=== PATIENT | female | born 1950 | race Caucasian/White ===

== ENCOUNTER 2016-11-11 11:51 | Emergency (ER) | payer MEDICARE ==
[2016-11-11 12:00] VITALS: PULSE 72
--- NOTE | 2016-11-11 12:20 | ED ---
Female Urogenital HPI - General Chief complaint: Urogenital Stated complaint: UTI Time Seen by Provider: 11/11/16 12:01 Source: patient Mode of arrival: ambulatory Limitations: no limitations - History of Present Illness Initial comments: This is a 66-year-old female who presents emergency department for discolored urine and stool. She states that she also has been having urinary frequency and burning with lower abdominal pain and lower back pain area and she states that this is been going on for a few weeks. She was started on your abdominal by her nurse practitioner. She took one last night and one this morning and that is when she noticed that her urine was a different color. She states that almost looked brown. She denies any fevers or chills. No nausea or vomiting. She does admit to some diarrhea that started this morning. No other complaints. - Related Data Home Medications Medication Instructions Recorded Confirmed ALPRAZolam [Xanax] 0.5 mg PO DAILY 02/12/15 11/11/16 Fenofibrate,Micronized 200 mg PO DAILY 02/12/15 11/11/16 [Fenofibrate] Lisinopril [Prinivil] 20 mg PO BID 02/12/15 11/11/16 Montelukast [Singulair] 10 mg PO DAILY 02/12/15 11/11/16 PARoxetine HCL 40 mg PO DAILY 02/12/15 11/11/16 Pregabalin [Lyrica] 300 mg PO BID 02/12/15 11/11/16 SUMAtriptan SUCCINATE [Imitrex] 100 mg PO TID PRN 02/12/15 11/11/16 Saxagliptin HCl/Metformin HCl 1 tab PO AC-BID 02/12/15 11/11/16 [Kombiglyze Xr 2.5-1,000 mg Tab] Cyanocobalamin [Vitamin B-12 1,000 mcg SQ QMONTH 02/04/16 11/11/16 Injection] Dexlansoprazole [Dexilant] 60 mg PO DAILY 02/04/16 11/11/16 Fluticasone Nasal Hanna [Flonase 1 spray EA NOSTRIL DAILY 02/04/16 11/11/16 Nasal Hanna] Fluticasone/Salmeterol [Advair 1 inhalation PO RT-BID 02/04/16 11/11/16 100-50 Diskus] Levocetirizine Dihydrochloride 5 mg PO DAILY 02/04/16 11/11/16 Magnesium 1,000 mg PO HS 02/04/16 11/11/16 Pravastatin Sodium [Pravachol] 80 mg PO HS 02/04/16 11/11/16 Ranitidine HCl [Zantac] 150 mg PO HS 02/04/16 11/11/16 Previous Rx's Medication Instructions Recorded HYDROcodone/APAP 10-325MG [[facility] [place] 1 tab PO Q6H PRN #60 tab 02/04/16 10-325] Ciprofloxacin HCl [Cipro] 500 mg PO Q12HR #14 tablet 11/11/16 Fluconazole [Diflucan] 200 mg PO ONCE #1 tab 11/11/16 Phenazopyridine HCl [Pyridium] 100 mg PO TID #6 tab 11/11/16 Allergies Allergy/AdvReac Type Severity Reaction Status Date / Time codeine Allergy Nausea Verified 11/11/16 12:48 Sulfa (Sulfonamide Allergy Nausea Verified 11/11/16 12:48 Antibiotics) Review of Systems ROS Statement: Those systems with pertinent positive or pertinent negative responses have been documented in the HPI. ROS Other: All systems not noted in ROS Statement are negative. Past Medical History Past Medical History: Heart Failure, GERD/Reflux, Hyperlipidemia, Hypertension, Thyroid Disorder Additional Past Medical History / Comment(s): migraine, barretts esophagus History of Any Multi-Drug Resistant Organisms: None Reported Past Surgical History: Hernia Repair, Joint Replacement, Tonsillectomy Additional Past Surgical History / Comment(s): Partial hysterectomy Past Anesthesia/Blood Transfusion Reactions: No Reported Reaction Past Psychological History: Depression Smoking Status: Never smoker Past Alcohol Use History: None Reported Past Drug Use History: None Reported - Past Family History Mother Family Medical History: CVA/TIA, Myocardial Infarction ([place]) Father Family Medical History: Cancer, Prostate Disorder Additional Family Medical History / Comment(s): prostate ca and lymphoma, bone ca General Exam - General Exam Comments Initial Comments: Constitutional: Awake alert Appears comfortable, very anxious appearing Head: Normocephalic atraumatic Eyes: no conjunctival injection No scleral icterus EOMI Neck: No JVD Supple Heart: Regular rate rhythm normal S1-S2 no murmurs Lungs: Clear to auscultation bilaterally No wheezing No rales Abdomen: Soft nondistended no tenderness to palpation in the suprapubic region, no CVA tenderness Extremities: Non edematous DP pulses intact Radial pulses intact Neuro: A&Ox3 No focal neurologic deficits Psych: Appropriate mood and affect Limitations: no limitations Course Vital Signs 11/11/16 11/11/16 11:58 14:46 Temperature 98.6 F 97.6 F Pulse Rate 72 72 Respiratory 20 18 Rate Blood Pressure 195/93 192/85 O2 Sat by Pulse 96 97 Oximetry Medical Decision Making - Medical Decision Making Patient is currently comfortable. Blood work reviewed and unremarkable. UA does show urinary tract infection. I feel that the color change in her urine is from the [place]rib[place]. Told to stop this. We'll start her on Cipro. Given Diflucan emergency department as well. Given Pyridium for home. Can follow-up with her primary doctor. - Lab Data Result diagrams: 11/11/16 14:10 11/11/16 14:10 Lab Results 11/11/16 11/11/16 11/11/16 Range/Units 12:03 14:10 14:10 WBC 5.1 (3.8-10.6) k/uL RBC 4.24 (3.80-5.40) m/uL Hgb 11.8 (11.4-16.0) gm/dL Hct 36.3 (34.0-46.0) % MCV 85.7 (80.0-100.0) fL MCH 27.9 (25.0-35.0) pg MCHC 32.5 (31.0-37.0) g/dL RDW 14.6 (11.5-15.5) % Plt Count 126 L (150-450) k/uL Neutrophils % 71 % Lymphocytes % 21 % Monocytes % 5 % Eosinophils % 2 % Basophils % 0 % Neutrophils # 3.6 (1.3-7.7) k/uL Lymphocytes # 1.1 (1.0-4.8) k/uL Monocytes # 0.3 (0-1.0) k/uL Eosinophils # 0.1 (0-0.7) k/uL Basophils # 0.0 (0-0.2) k/uL Sodium 138 (137-145) mmol/L Potassium 4.0 (3.5-5.1) mmol/L Chloride 101 (98-107) mmol/L Carbon Dioxide 24 (22-30) mmol/L Anion Gap 13 mmol/L BUN 12 (7-17) mg/dL Creatinine 0.84 (0.52-1.04) mg/dL Est GFR (MDRD) Af Amer >60 (>60 ml/min/1.73 sqM) Est GFR (MDRD) Non-Af >60 (>60 ml/min/1.73 sqM) Glucose 419 H (74-99) mg/dL Calcium 9.4 (8.4-10.2) mg/dL Urine Color Dark Green Urine Appearance Turbid H (Clear) Urine pH 5.0 (5.0-8.0) Ur Specific Froid 1.022 (1.001-1.035) Urine Protein 1+ H (Negative) Urine Glucose (UA) Negative (Negative) Urine Ketones Negative (Negative) Urine Blood Small H (Negative) Urine Nitrite Positive H (Negative) Urine Bilirubin 1+ H (Negative) Urine Urobilinogen 2.0 (<2.0) mg/dL Ur Leukocyte Esterase Large H (Negative) Urine RBC 120 H (0-5) /hpf Urine WBC >182 H (0-5) /hpf Urine WBC Clumps Many H (None) /hpf Ur Squamous Epith Cells 8 H (0-4) /hpf Urine Bacteria Moderate H (None) /hpf Urine Mucus Rare H (None) /hpf Disposition Clinical Impression: UTI (urinary tract infection), Maay vaginitis Disposition: HOME SELF-CARE Condition: Stable Instructions: Urinary Tract Infection in Women (ED), Vulvovaginal Candidiasis ( ED) Prescriptions: Ciprofloxacin HCl [Cipro] 500 mg PO Q12HR #14 tablet Fluconazole [Diflucan] 200 mg PO ONCE #1 tab Phenazopyridine HCl [Pyridium] 100 mg PO TID #6 tab Referrals: None,Stated [Primary Care Provider] - 1-2 days
[2016-11-11] MEDS ORDERED: FLUCONAZOLE 100 MG TAB PO ONE (12:24)
[2016-11-11 12:37] LABS: Appearance,Urine Turbid (Clear); Bacteria,Urine Moderate /hpf; Bilirubin,Urine 1+ (Negative); Glucose,Urine (UA) Negative (Negative); Ketones,Urine Negative (Negative); Leukocyte Esterase,Urine Large (Negative); Mucus,Urine Rare /hpf; Nitrite,Urine Positive (Negative); Particle Count 11798; Protein,Urine 1+ (Negative); RBC,Urine 120 /hpf (0-5); Specific Gravity,Urine 1.022 (1.001-1.035); Squamous Epithelial Cell,Urine 8 /hpf (0-4); UA Billing (MACRO vs. MICRO) MICRO; WBC,Urine >182 /hpf (0-5)
[2016-11-11 14:31] LABS: Basophils % (A) 0 %; CH 27.8; CHCM 32.7; Eosinophils # (A) 0.1 k/uL (0-0.7); Eosinophils % (A) 2 %; HCT 36.3 % (34.0-46.0); HDW 2.71; HGB 11.8 gm/dL (11.4-16.0); Luc # (Auto) 0.06; Luc % (Auto) 1; Lymphocytes # (A) 1.1 k/uL (1.0-4.8); Lymphocytes % (A) 21 %; MCH 27.9 pg (25.0-35.0); MCHC 32.5 g/dL (31.0-37.0); MCV 85.7 fL (80.0-100.0); Mean Platelet Volume 10.3; Monocytes # (A) 0.3 k/uL (0-1.0); Monocytes % (A) 5 %; Neutrophils # (A) 3.6 k/uL (1.3-7.7); Neutrophils % (A) 71 %; RBC 4.24 m/uL (3.80-5.40); RDW 14.6 % (11.5-15.5); WBC 5.1 k/uL (3.8-10.6)
[2016-11-11 14:34] LABS: Anion Gap 13 mmol/L; Blood Urea Nitrogen 12 mg/dL (7-17); Calcium 9.4 mg/dL (8.4-10.2); Carbon Dioxide 24 mmol/L (22-30); Chloride 101 mmol/L (98-107); Glucose 419 mg/dL (74-99); Non-African American GFR(MDRD) >60 (>60 ml/min/1.73 sqM); Sodium 138 mmol/L (137-145)
[2016-11-11 14:47] VITALS: BP 192/85; RESP 18; TEMP 97.6
== END 2016-11-11 14:46 | disposition home or self-care (01) ==
LOC: EC 11:51
DX: N39.0 Urinary tract infection, site not specified (principal); B37.3 Candidiasis of vulva and vagina; I50.9 Heart failure, unspecified; K21.9 Gastro-esophageal reflux disease without esophagitis; E78.5 Hyperlipidemia, unspecified; I10 Essential (primary) hypertension; F32.9 Major depressive disorder, single episode, unspecified; Z79.51 Long term (current) use of inhaled steroids; Z79.899 Other long term (current) drug therapy; Z88.2 Allergy status to sulfonamides; Z88.5 Allergy status to narcotic agent
CPT/HCPCS: 36415; 80048; 81001; 85025; 87077; 87086; 87186; 99283

== ENCOUNTER → 2018-07-19 | Outpatient (CLI) | payer MEDICARE ==
--- NOTE | 2018-07-19 11:58 | XR ---
EXAMINATION TYPE: XR foot complete LT DATE OF EXAM: 07/19/2018 COMPARISON: NONE HISTORY: Palpable abnormality TECHNIQUE: Three views are submitted. FINDINGS: The osseous structures are intact. There is no acute fracture or dislocation. Joint spaces are p reserved. There is spurring along the Achilles insertion of the calcaneus. Plantar calcaneal spur not ed. There is soft tissue calcification the region of the posterior ankle soft tissues. Arthropathy of the tarsal metatarsal junction and first MTP noted. IMPRESSION: 1. No acute fracture or dislocation. If symptoms persist, follow-up exam in 7 to 10 days could be ob tained. 2. Hypertrophic spurring.
== END | disposition home or self-care (01) ==
LOC: RADXRMAIN 11:32
PROVIDERS: ATTEND Podiatrist Foot Surgery
DX: M77.32 Calcaneal spur, left foot (principal); M77.42 Metatarsalgia, left foot

== ENCOUNTER 2018-08-16 14:21 | Inpatient (IN) | payer MEDICARE ==
[2018-08-16] MEDS ORDERED: ALPRAZolam 0.5 MG TAB PO STA (15:09)
[2018-08-16 15:47] LABS: Appearance,Urine Clear (Clear); Bilirubin,Urine Negative (Negative); Blood,Urine Negative (Negative); Color,Urine Yellow; Glucose,Urine (UA) 4+ (Negative); Ketones,Urine Negative (Negative); Leukocyte Esterase,Urine Trace (Negative); Mucus,Urine Rare /hpf; Nitrite,Urine Negative (Negative); PH, Urine 5.5 (5.0-8.0); Protein,Urine 1+ (Negative); RBC,Urine 1 /hpf (0-5); Specific Gravity,Urine 1.014 (1.001-1.035); Squamous Epithelial Cell,Urine 1 /hpf (0-4); Urobilinogen,Urine <2.0 mg/dL (<2.0)
[2018-08-16 16:19] LABS: Anisocytosis Slight; Basophils % (A) 0 %; Eosinophils # (A) 0.1 k/uL (0-0.7); Eosinophils % (A) 1 %; HCT 41.7 % (34.0-46.0); HGB 13.1 gm/dL (11.4-16.0); Hypochromasia Slight; Lymphocytes # (A) 1.6 k/uL (1.0-4.8); Lymphocytes % (A) 20 %; MCH 26.8 pg (25.0-35.0); MCHC 31.4 g/dL (31.0-37.0); MCV 85.4 fL (80.0-100.0); Mean Platelet Volume 7.9; Monocytes # (A) 0.3 k/uL (0-1.0); Monocytes % (A) 4 %; Neutrophils % (A) 74 %; Platelet Count 249 k/uL (150-450); RBC 4.88 m/uL (3.80-5.40); RDW 17.1 % (11.5-15.5); WBC 8.2 k/uL (3.8-10.6)
[2018-08-16 16:29] LABS: ALT 29 U/L (9-52); AST 34 U/L (14-36); Alkaline Phosphatase <20 U/L (38-126); Anion Gap 11 mmol/L; Blood Urea Nitrogen 38 mg/dL (7-17); Calcium 9.7 mg/dL (8.4-10.2); Carbon Dioxide 23 mmol/L (22-30); Chloride 102 mmol/L (98-107); Potassium 4.5 mmol/L (3.5-5.1); Sodium 136 mmol/L (137-145); Total Bilirubin 0.7 mg/dL (0.2-1.3); Total Protein 6.7 g/dL (6.3-8.2)
--- NOTE | 2018-08-16 16:32 | XR ---
EXAMINATION: XR chest 2V DATE AND TIME: 08/16/2018 4:26 PM CLINICAL INDICATION: Cough and congestion, pain TECHNIQUE: Departmental protocol COMPARISON: 02/03/2016 FINDINGS: The lungs are clear. The pleural spaces are negative. The cardiac silhouette is not enlarged. The remainder of the mediastinal silhouette is unremarkable. The skeletal structures and soft tissues are negative for acute findings. IMPRESSION: NO ACUTE PROCESS.
[2018-08-16 16:38] LABS: INR 1.2 (<1.2); Prothrombin Time 12.4 sec (9.0-12.0)
[2018-08-16 16:41] LABS: Partial Thromboplastin Time 17.9 sec (22.0-30.0)
[2018-08-16 16:50] LABS: Creatine Kinase MB 2.6 ng/mL (0.0-2.4)
[2018-08-16 16:58] LABS: Glucose 588 mg/dL (74-99)
[2018-08-16 16:59] LABS: Troponin I 0.049 ng/mL (0.000-0.034)
[2018-08-16] MEDS ORDERED: ASPIRIN 81 MG PO STA (17:04)
--- NOTE | 2018-08-16 17:13 | ED ---
URI HPI <Yakov Lebron J - Last Filed: 08/16/18 18:12> - General Source: patient Mode of arrival: ambulatory Limitations: no limitations <Maddie Ho - Last Filed: 08/16/18 22:09> - General Chief Complaint: Upper Respiratory Infection Stated Complaint: Poss flu,cough Time Seen by Provider: 08/16/18 14:51 - History of Present Illness Initial Comments: 68-year-old female with past medical history of hypertension, hyperlipidemia, diabetes and heart failure presents today for chief complaint of cough, congestion and chest pressure. Patient states that for the past week she has had cough congestion and chest pressure. She states she feels as though she has a chest cold. She states she's also had fever and chills. She does have sick contacts in the household. Patient denies any upper extremity paresthesias , which are pain, back pain, nausea, vomiting, diaphoresis. She states that she was seen by Dr. Gordon, lst Thursday and prescribed antibiotics, a steroid pack and a nebulizer. She states this is not alleviate symptoms. Patient states that in addition she recently has moved, and is new to [place], she states that she was transferred to Dr. Colunga for pain mgmt as he was previously seen in [place] for chronic pain of the neck. She states he put her on her fentanyl and [place]. However he is not represcribed her trazodone or other antianxiety meds. Patient does admit to increased anxiety. Patient denies any dyspnea, dyspnea on exertion, lower extremity edema, calf pain, hemoptysis, recent travel, history of cancer. Remaining ROS is negative, patient denies any recent abdominal pain, nausea or vomiting, numbness or tingling, dysuria or hematuria, constipation or diarrhea, headaches or visual changes, or any other complaints. Upon arrival pt HR elevated, remaining within acceptable limits. (Maddie Ho) - Related Data Home Medications Medication Instructions Recorded Confirmed Fenofibrate,Micronized 200 mg PO DAILY 02/12/15 08/16/18 [Fenofibrate] Lisinopril [Prinivil] 20 mg PO BID 02/12/15 08/16/18 PARoxetine HCL 40 mg PO DAILY 02/12/15 08/16/18 SUMAtriptan SUCCINATE [Imitrex] 100 mg PO TID PRN 02/12/15 08/16/18 Cyanocobalamin [Vitamin B-12 1,000 mcg SQ QMONTH 02/04/16 08/16/18 Injection] Dexlansoprazole [Dexilant] 60 mg PO DAILY 02/04/16 08/16/18 Fluticasone Nasal Alcova [Flonase 1 spray EA NOSTRIL DAILY 02/04/16 08/16/18 Nasal Alcova] Fluticasone/Salmeterol [Advair 1 inhalation PO RT-BID 02/04/16 08/16/18 100-50 Diskus] Atorvastatin [Lipitor] 80 mg PO DAILY 08/16/18 08/16/18 Ciprofloxacin HCl [Cipro] 500 mg PO BID 08/16/18 08/16/18 HYDROcodone/APAP 10-325MG [[place] 1 tab PO DAILY PRN 08/16/18 08/16/18 10-325] INSULIN LISPRO (humaLOG) [humaLOG] 15 units SQ BID 08/16/18 08/16/18 Insulin Glargine,Hum.rec.anlog 25 unit SQ HS 08/16/18 08/16/18 [Lantus Solostar] Orphenadrine Citrate [Orphenadrine 100 mg PO BID 08/16/18 08/16/18 Citrate ER] Pregabalin [Lyrica] 100 mg PO BID 08/16/18 08/16/18 Ranitidine HCl 300 mg PO DAILY 08/16/18 08/16/18 busPIRone HCL 15 mg PO BID 08/16/18 08/16/18 fentaNYL 50MCG/HR PATCH [Duragesic 50 mcg TRANSDERM Q72H 08/16/18 08/16/18 50MCG/HR] metFORMIN HCL ER [Glucophage Xr] 1,000 mg PO BID 08/16/18 08/16/18 Allergies Allergy/AdvReac Type Severity Reaction Status Date / Time codeine Allergy Nausea Verified 08/16/18 17:02 Sulfa (Sulfonamide Allergy Nausea Verified 08/16/18 17:02 Antibiotics) Review of Systems ROS Other: All systems not noted in ROS Statement are negative. <Yakov Lebron - Last Filed: 08/16/18 18:12> ROS Other: All systems not noted in ROS Statement are negative. <Maddie Ho - Last Filed: 08/16/18 22:09> ROS Statement: Those systems with pertinent positive or pertinent negative responses have been documented in the HPI. Past Medical History Past Medical History: Heart Failure, GERD/Reflux, Hyperlipidemia, Hypertension, Thyroid Disorder Additional Past Medical History / Comment(s): migraine, barretts esophagus History of Any Multi-Drug Resistant Organisms: None Reported Past Surgical History: Hernia Repair, Joint Replacement, Tonsillectomy Additional Past Surgical History / Comment(s): Partial hysterectomy Past Anesthesia/Blood Transfusion Reactions: No Reported Reaction Past Psychological History: Anxiety, Depression, Panic Disorder Smoking Status: Never smoker Past Alcohol Use History: None Reported Past Drug Use History: None Reported - Past Family History Mother Family Medical History: CVA/TIA, Myocardial Infarction ([place]) Father Family Medical History: Cancer, Prostate Disorder Additional Family Medical History / Comment(s): prostate ca and lymphoma, bone ca <Maddie Ho - Last Filed: 08/16/18 22:09> General Exam <Yakov Lebron - Last Filed: 08/16/18 18:12> Limitations: no limitations <Maddie Ho - Last Filed: 08/16/18 22:09> - General Exam Comments Initial Comments: General: The patient is awake and alert, in no distress. Pt wearing mask Eye: +3 mm pupils are equal, round and reactive to light, extra-ocular movements are intact. No nystagmus. There is normal conjunctiva bilaterally. No signs of icterus. Ears, nose, mouth and throat: There are moist mucous membranes and no oral lesions. Nasal congestion. Mildly erythematous oropharynx, no tonsillar enlargement or exudates or lesions. No difficulty swallowing. Neck: The neck is supple, there is no tenderness or JVD. No anterior cervical adenopathy. Cardiovascular: There is a regular rate and rhythm. No murmur, rub or gallop is appreciated. Respiratory: Lungs are clear to auscultation, respirations are non-labored, breath sounds are equal. No wheezes, stridor, rales. Mild rhonchi. Cough on exam. Gastrointestinal: Soft, non-distended, non-tender abdomen without masses or organomegaly noted. There is no rebound or guarding present. No CVA tenderness. Bowel sounds are unremarkable. Musculoskeletal: Normal ROM, no tenderness. Strength 5/5. Sensation intact. Radial and DP pulses equal bilaterally 2+. Neurological: A&O x 3. CN II-XII intact, There are no obvious motor or sensory deficits. Coordination appears grossly intact. Speech is normal. Skin: Skin is warm and dry and no rashes or lesions are noted. Negative Homans b/l. No lower extremity edema. Psychiatric: Cooperative, appropriate mood & affect, normal judgment. (Maddie Ho) Vital Signs 08/16/18 08/16/18 08/16/18 14:23 15:43 15:47 Temperature 98.8 F 100.2 F H Pulse Rate 106 H 98 Respiratory 18 20 18 Rate Blood Pressure 136/84 177/89 O2 Sat by Pulse 96 99 Oximetry 08/16/18 08/16/18 18:41 19:10 Temperature 100 F H 98.5 F Pulse Rate 66 67 Respiratory 18 20 Rate Blood Pressure 154/80 154/80 O2 Sat by Pulse 98 96 Oximetry Medical Decision Making - Lab Data Result diagrams: 08/16/18 16:00 08/16/18 16:00 <Yakov Lebron - Last Filed: 08/16/18 18:12> - Lab Data Result diagrams: 08/16/18 16:00 08/16/18 16:00 - EKG Data -: EKG Interpreted by Me (and Dr. Lebron attending provider) <Maddie Ho - Last Filed: 08/16/18 22:09> - Medical Decision Making The patient was seen and examined. All diagnostics are reviewed. The case is discussed with the PA and agree with findings as documented. (Yakov Lebron) 68-year-old female presenting today for upper respiratory symptoms and chest pressure. She states this has been ongoing for 2 through days, she states she feels she has a chest cold. Positive sick contacts. Influenza negative. Patient does have elevation of the blood cell count and lactic acid. Started on Rocephin, althought viral syndrome is on ddx. Patient had elevation mildly of initial troponin at 0.49 will repeat. Patient was started on low-dose heparin given risk factors concerning for acute coronary syndrome and complaint of chest pressure. Chest x-ray negative, there is no findings concerning for acute heart failure exacerbation. Glucose significantly elevated, delay in IV fluids due to inability to establish IV access. Once obtained pt given IV bolus. 14U SQ insulin. Ketones negative, Anion Gap 11. No physical exam findings concerning for DKA. Physical exam findings are unremarkable, patient did have dry cough on exam. Will repeat lactic acid. Patient will be admitted for cardiology consult, and further evaluation. I did discuss the case attending provider Dr. Lebron who recommended Low dose heparin and admission. Pt agreeable with admission denies questions at this time. pt transferred to floor in stable condition with glucose trending down. (Maddie Ho) - Lab Data Lab Results 08/16/18 08/16/18 08/16/18 Range/Units 15:19 15:46 16:00 WBC 8.2 (3.8-10.6) k/uL RBC 4.88 (3.80-5.40) m/uL Hgb 13.1 (11.4-16.0) gm/dL Hct 41.7 (34.0-46.0) % MCV 85.4 (80.0-100.0) fL MCH 26.8 (25.0-35.0) pg MCHC 31.4 (31.0-37.0) g/dL RDW 17.1 H (11.5-15.5) % Plt Count 249 (150-450) k/uL Neutrophils % 74 % Lymphocytes % 20 % Monocytes % 4 % Eosinophils % 1 % Basophils % 0 % Neutrophils # 6.0 (1.3-7.7) k/uL Lymphocytes # 1.6 (1.0-4.8) k/uL Monocytes # 0.3 (0-1.0) k/uL Eosinophils # 0.1 (0-0.7) k/uL Basophils # 0.0 (0-0.2) k/uL Hypochromasia Slight Anisocytosis Slight PT (9.0-12.0) sec INR (<1.2) APTT (22.0-30.0) sec Sodium (137-145) mmol/L Potassium (3.5-5.1) mmol/L Chloride (98-107) mmol/L Carbon Dioxide (22-30) mmol/L Anion Gap mmol/L BUN (7-17) mg/dL Creatinine (0.52-1.04) mg/dL Est GFR (CKD-EPI)AfAm (>60 ml/min/1.73 sqM) Est GFR (CKD-EPI)NonAf (>60 ml/min/1.73 sqM) Glucose (74-99) mg/dL POC Glucose (mg/dL) (75-99) mg/dL POC Glu Fish House Worker ID Lactic Ac Sepsis Rflx Plasma Lactic Acid [place] (0.7-2.0) mmol/L Calcium (8.4-10.2) mg/dL Total Bilirubin (0.2-1.3) mg/dL AST (14-36) U/L ALT (9-52) U/L Alkaline Phosphatase (38-126) U/L Total Creatine Kinase (30-135) U/L CK-MB (CK-2) (0.0-2.4) ng/mL CK-MB (CK-2) Rel Index Troponin I (0.000-0.034) ng/mL NT-Pro-B Natriuret Pep pg/mL Total Protein (6.3-8.2) g/dL Albumin (3.5-5.0) g/dL Urine Color Yellow Urine Appearance Clear (Clear) Urine pH 5.5 (5.0-8.0) Ur Specific [place] 1.014 (1.001-1.035) Urine Protein 1+ H (Negative) Urine Glucose (UA) 4+ H (Negative) Urine Ketones Negative (Negative) Urine Blood Negative (Negative) Urine Nitrite Negative (Negative) Urine Bilirubin Negative (Negative) Urine Urobilinogen <2.0 (<2.0) mg/dL Ur Leukocyte Esterase Trace H (Negative) Urine RBC 1 (0-5) /hpf Urine WBC 4 (0-5) /hpf Ur Squamous Epith Cells 1 (0-4) /hpf Urine Mucus Rare H (None) /hpf Influenza Type A RNA Not Detected (Not Detectd) Influenza Type B (PCR) Not Detected (Not Detectd) 08/16/18 08/16/18 08/16/18 Range/Units 16:00 16:00 16:00 WBC (3.8-10.6) k/uL RBC (3.80-5.40) m/uL Hgb (11.4-16.0) gm/dL Hct (34.0-46.0) % MCV (80.0-100.0) fL MCH (25.0-35.0) pg MCHC (31.0-37.0) g/dL RDW (11.5-15.5) % Plt Count (150-450) k/uL Neutrophils % % Lymphocytes % % Monocytes % % Eosinophils % % Basophils % % Neutrophils # (1.3-7.7) k/uL Lymphocytes # (1.0-4.8) k/uL Monocytes # (0-1.0) k/uL Eosinophils # (0-0.7) k/uL Basophils # (0-0.2) k/uL Hypochromasia Anisocytosis PT (9.0-12.0) sec INR (<1.2) APTT (22.0-30.0) sec Sodium 136 L (137-145) mmol/L Potassium 4.5 (3.5-5.1) mmol/L Chloride 102 (98-107) mmol/L Carbon Dioxide 23 (22-30) mmol/L Anion Gap 11 mmol/L BUN 38 H (7-17) mg/dL Creatinine 1.49 H (0.52-1.04) mg/dL Est GFR (CKD-EPI)AfAm 41 (>60 ml/min/1.73 sqM) Est GFR (CKD-EPI)NonAf 36 (>60 ml/min/1.73 sqM) Glucose 588 H* (74-99) mg/dL POC Glucose (mg/dL) (75-99) mg/dL POC Glu Fish House Worker ID Lactic Ac Sepsis Rflx Plasma Lactic Acid [place] 2.5 H* (0.7-2.0) mmol/L Calcium 9.7 (8.4-10.2) mg/dL Total Bilirubin 0.7 (0.2-1.3) mg/dL AST 34 (14-36) U/L ALT 29 (9-52) U/L Alkaline Phosphatase <20 L (38-126) U/L Total Creatine Kinase 120 (30-135) U/L CK-MB (CK-2) 2.6 H (0.0-2.4) ng/mL CK-MB (CK-2) Rel Index 2.2 Troponin I 0.049 H* (0.000-0.034) ng/mL NT-Pro-B Natriuret Pep pg/mL Total Protein 6.7 (6.3-8.2) g/dL Albumin 4.0 (3.5-5.0) g/dL Urine Color Urine Appearance (Clear) Urine pH (5.0-8.0) Ur Specific [place] (1.001-1.035) Urine Protein (Negative) Urine Glucose (UA) (Negative) Urine Ketones (Negative) Urine Blood (Negative) Urine Nitrite (Negative) Urine Bilirubin (Negative) Urine Urobilinogen (<2.0) mg/dL Ur Leukocyte Esterase (Negative) Urine RBC (0-5) /hpf Urine WBC (0-5) /hpf Ur Squamous Epith Cells (0-4) /hpf Urine Mucus (None) /hpf Influenza Type A RNA (Not Detectd) Influenza Type B (PCR) (Not Detectd) 08/16/18 08/16/18 08/16/18 Range/Units 16:00 16:00 16:58 WBC (3.8-10.6) k/uL RBC (3.80-5.40) m/uL Hgb (11.4-16.0) gm/dL Hct (34.0-46.0) % MCV (80.0-100.0) fL MCH (25.0-35.0) pg MCHC (31.0-37.0) g/dL RDW (11.5-15.5) % Plt Count (150-450) k/uL Neutrophils % % Lymphocytes % % Monocytes % % Eosinophils % % Basophils % % Neutrophils # (1.3-7.7) k/uL Lymphocytes # (1.0-4.8) k/uL Monocytes # (0-1.0) k/uL Eosinophils # (0-0.7) k/uL Basophils # (0-0.2) k/uL Hypochromasia Anisocytosis PT 12.4 H (9.0-12.0) sec INR 1.2 H (<1.2) APTT 17.9 L (22.0-30.0) sec Sodium (137-145) mmol/L Potassium (3.5-5.1) mmol/L Chloride (98-107) mmol/L Carbon Dioxide (22-30) mmol/L Anion Gap mmol/L BUN (7-17) mg/dL Creatinine (0.52-1.04) mg/dL Est GFR (CKD-EPI)AfAm (>60 ml/min/1.73 sqM) Est GFR (CKD-EPI)NonAf (>60 ml/min/1.73 sqM) Glucose (74-99) mg/dL POC Glucose (mg/dL) (75-99) mg/dL POC Glu Fish House Worker ID Lactic Ac Sepsis Rflx Y Plasma Lactic Acid [place] (0.7-2.0) mmol/L Calcium (8.4-10.2) mg/dL Total Bilirubin (0.2-1.3) mg/dL AST (14-36) U/L ALT (9-52) U/L Alkaline Phosphatase (38-126) U/L Total Creatine Kinase (30-135) U/L CK-MB (CK-2) (0.0-2.4) ng/mL CK-MB (CK-2) Rel Index Troponin I (0.000-0.034) ng/mL NT-Pro-B Natriuret Pep 1000 pg/mL Total Protein (6.3-8.2) g/dL Albumin (3.5-5.0) g/dL Urine Color Urine Appearance (Clear) Urine pH (5.0-8.0) Ur Specific [place] (1.001-1.035) Urine Protein (Negative) Urine Glucose (UA) (Negative) Urine Ketones (Negative) Urine Blood (Negative) Urine Nitrite (Negative) Urine Bilirubin (Negative) Urine Urobilinogen (<2.0) mg/dL Ur Leukocyte Esterase (Negative) Urine RBC (0-5) /hpf Urine WBC (0-5) /hpf Ur Squamous Epith Cells (0-4) /hpf Urine Mucus (None) /hpf Influenza Type A RNA (Not Detectd) Influenza Type B (PCR) (Not Detectd) 08/16/18 Range/Units 18:09 WBC (3.8-10.6) k/uL RBC (3.80-5.40) m/uL Hgb (11.4-16.0) gm/dL Hct (34.0-46.0) % MCV (80.0-100.0) fL MCH (25.0-35.0) pg MCHC (31.0-37.0) g/dL RDW (11.5-15.5) % Plt Count (150-450) k/uL Neutrophils % % Lymphocytes % % Monocytes % % Eosinophils % % Basophils % % Neutrophils # (1.3-7.7) k/uL Lymphocytes # (1.0-4.8) k/uL Monocytes # (0-1.0) k/uL Eosinophils # (0-0.7) k/uL Basophils # (0-0.2) k/uL Hypochromasia Anisocytosis PT (9.0-12.0) sec INR (<1.2) APTT (22.0-30.0) sec Sodium (137-145) mmol/L Potassium (3.5-5.1) mmol/L Chloride (98-107) mmol/L Carbon Dioxide (22-30) mmol/L Anion Gap mmol/L BUN (7-17) mg/dL Creatinine (0.52-1.04) mg/dL Est GFR (CKD-EPI)AfAm (>60 ml/min/1.73 sqM) Est GFR (CKD-EPI)NonAf (>60 ml/min/1.73 sqM) Glucose (74-99) mg/dL POC Glucose (mg/dL) 400 H (75-99) mg/dL POC Glu Fish House Worker ID LedesmaDouglas Lactic Ac Sepsis Rflx Plasma Lactic Acid [place] (0.7-2.0) mmol/L Calcium (8.4-10.2) mg/dL Total Bilirubin (0.2-1.3) mg/dL AST (14-36) U/L ALT (9-52) U/L Alkaline Phosphatase (38-126) U/L Total Creatine Kinase (30-135) U/L CK-MB (CK-2) (0.0-2.4) ng/mL CK-MB (CK-2) Rel Index Troponin I (0.000-0.034) ng/mL NT-Pro-B Natriuret Pep pg/mL Total Protein (6.3-8.2) g/dL Albumin (3.5-5.0) g/dL Urine Color Urine Appearance (Clear) Urine pH (5.0-8.0) Ur Specific [place] (1.001-1.035) Urine Protein (Negative) Urine Glucose (UA) (Negative) Urine Ketones (Negative) Urine Blood (Negative) Urine Nitrite (Negative) Urine Bilirubin (Negative) Urine Urobilinogen (<2.0) mg/dL Ur Leukocyte Esterase (Negative) Urine RBC (0-5) /hpf Urine WBC (0-5) /hpf Ur Squamous Epith Cells (0-4) /hpf Urine Mucus (None) /hpf Influenza Type A RNA (Not Detectd) Influenza Type B (PCR) (Not Detectd) - EKG Data EKG Comments: Ventricular rate 79 beats ran, ME 150 mils seconds, QRS episcopal 98 ms, QT/ QTC 400/458 ms. This is normal sinus rhythm, there is an incomplete right bundle branch block. Nonspecific T-wave abnormalities. No evidence of ST elevation or depression. Interpreted by myself and Dr. Lebron. (Maddie Ho) Disposition <Yakov Lebron - Last Filed: 08/16/18 18:12> Is patient prescribed a controlled substance at d/c from ED?: No Time of Disposition: 17:53 Decision to Admit Reason: Admit from EC Decision Date: 08/16/18 Decision Time: 17:53 <Maddie Ho - Last Filed: 08/16/18 22:09> Clinical Impression: Cough, Congestion of nasal sinus, Fever, Blood glucose elevated, Elevated troponin I measurement Disposition: ADMITTED IP TO THIS HOSP Condition: Stable
[2018-08-16] MEDS ORDERED: SODIUM CHLORIDE 0.9% 1,000 ML IV ONE (17:47)
[2018-08-16] MEDS ORDERED: INSULIN REGULAR 100 UNIT/ML VIAL SQ ONE (17:47)
[2018-08-16] MEDS ORDERED: HEPARIN SODIUM,PORCINE 5,000 UNIT/ML 1 ML VIAL IV PRN (17:48)
[2018-08-16] MEDS ORDERED: HEPARIN SODIUM,PORCINE 5,000 UNIT/ML 1 ML VIAL IV ONE (17:48)
[2018-08-16] MEDS ORDERED: NITROGLYCERIN OINT 1 INCH/GM PACKET TOPICAL STA (17:49)
[2018-08-16] MEDS ORDERED: IBUPROFEN 600 MG TAB PO STA (17:53)
[2018-08-16] MEDS ORDERED: cefTRIAXone 1,000 MG VIAL (IM USE) IM STA (17:54)
[2018-08-16] MEDS ORDERED: HEPARIN SOD,PORK IN 0.45% NACL 25,000 UNIT in 0.45% NACL 1 250ML.BAG IV SCH (18:00)
[2018-08-16 18:29] LABS: Glucose,Whole Blood 400 mg/dL (75-99)
[2018-08-16] MEDS: NITROGLYCERIN OINT 1 INCH/GM PACKET TOPICAL SCH ×2 (18:40→23:59)
[2018-08-16 20:09] LABS: Glucose,Whole Blood 264 mg/dL (75-99)
[2018-08-16 21:06] LABS: Glucose,Whole Blood 227 mg/dL (75-99)
[2018-08-16] MEDS ORDERED: CYCLOBENZAPRINE 10 MG TAB PO PRN (21:38)
[2018-08-16] MEDS ORDERED: IPRATROPIUM-ALBUTEROL 3 ML NEB INHALATION PRN (21:42)
[2018-08-16] MEDS: LISINOPRIL 20 MG TAB PO SCH (22:42)
[2018-08-16] MEDS: busPIRone HCl 5 MG TAB PO SCH (22:42)
[2018-08-16] MEDS: MELATONIN 3 MG TABLET PO PRN (22:43)
[2018-08-16] MEDS: PREGABALIN 100 MG CAP PO SCH (22:43)
[2018-08-17 00:16] LABS: Creatine Kinase MB 2.6 ng/mL (0.0-2.4)
[2018-08-17 00:26] LABS: Troponin I 0.051 ng/mL (0.000-0.034)
[2018-08-17 03:43] LABS: Anisocytosis Slight; Basophils % (A) 0 %; Eosinophils # (A) 0.2 k/uL (0-0.7); Eosinophils % (A) 2 %; HCT 36.9 % (34.0-46.0); HGB 11.7 gm/dL (11.4-16.0); Hypochromasia Slight; Lymphocytes # (A) 4.5 k/uL (1.0-4.8); Lymphocytes % (A) 45 %; MCH 26.4 pg (25.0-35.0); MCHC 31.6 g/dL (31.0-37.0); MCV 83.6 fL (80.0-100.0); Mean Platelet Volume 7.2; Monocytes # (A) 0.5 k/uL (0-1.0); Monocytes % (A) 4 %; Neutrophils # (A) 4.7 k/uL (1.3-7.7); Neutrophils % (A) 47 %; Platelet Count 232 k/uL (150-450); RBC 4.41 m/uL (3.80-5.40); RDW 16.8 % (11.5-15.5); WBC 10.1 k/uL (3.8-10.6)
[2018-08-17 03:48] LABS: Cholesterol 102 mg/dL (<200); HDL Cholesterol 38 mg/dL (40-60); LDL Cholesterol,Calculated 37 mg/dL (0-99); Triglycerides 137 mg/dL (<150)
[2018-08-17 04:10] LABS: Creatine Kinase MB 2.3 ng/mL (0.0-2.4)
[2018-08-17 04:18] LABS: Troponin I 0.041 ng/mL (0.000-0.034)
[2018-08-17] MEDS: NITROGLYCERIN OINT 1 INCH/GM PACKET TOPICAL SCH (04:59)
[2018-08-17 06:00] LABS: Glucose,Whole Blood 146 mg/dL (75-99)
[2018-08-17] MEDS ORDERED: SYMBICORT 80-4.5 MCG INHALER INHALATION SCH (08:00)
--- NOTE | 2018-08-17 08:11 | P.CRDCN ---
History of Present Illness Consult date: 08/17/18 Requesting physician: Santos Benites Reason for Consult (text): Abnormal troponins Chief complaint: Congestion, cough, chest discomfort History of present illness: This is a 68-year-old female with history of diabetes, hypertension, hyperlipidemia, nonsmoker, chronic pain, GERD, Espinoza's esophagus, bipolar disorder, history of kidney stones, anxiety, depression, short term memory loss , hypothyroidism, PTSD, and prior TIAs. She presents to the hospital on this admission with symptoms of fever, chest congestion and cough of productive yellow sputum, she also states that she had 1 episode of midsternal chest pressure and heaviness lasting seconds. Troponins were drawn in the emergency room which came back to be abnormal and for this reason a cardiology consultation at been requested. EKG on presentation here showed a normal sinus rhythm with incomplete right bundle branch block pattern and evidence of LVH strain pattern. Chest x-ray did not reveal any acute process. I pressure on arrival here 136/80 with a heart rate of 100, 96% on room air, she has been running temperatures, 100.2 100. Blood pressure this morning 119/74 with a heart rate in the 70s. White blood cell count 10.1, hemoglobin 11.7, platelet count 232. Sodium 136, potassium 4.5, BUN 38, creatinine 1.4. Blood glucose on arrival 588, troponins 0.04, 0.05, 0.04. BNP 1000. Influenza A and B are negative. At the time of my examination this morning, patient continues to have productive cough, denies any chest pain at present. Past Medical History Past Medical History: Heart Failure, GERD/Reflux, Hyperlipidemia, Hypertension, Thyroid Disorder Additional Past Medical History / Comment(s): migraine, barretts esophagus History of Any Multi-Drug Resistant Organisms: None Reported Past Surgical History: Hernia Repair, Joint Replacement, Tonsillectomy Additional Past Surgical History / Comment(s): Partial hysterectomy Past Anesthesia/Blood Transfusion Reactions: No Reported Reaction Past Psychological History: Anxiety, Depression, Panic Disorder Smoking Status: Never smoker Past Alcohol Use History: None Reported Past Drug Use History: None Reported - Past Family History Mother Family Medical History: CVA/TIA, Myocardial Infarction ([place]) Father Family Medical History: Cancer, Prostate Disorder Additional Family Medical History / Comment(s): prostate ca and lymphoma, bone ca Medications and Allergies Home Medications Medication Instructions Recorded Confirmed Type Fenofibrate,Micronized 200 mg PO DAILY 02/12/15 08/16/18 History [Fenofibrate] Lisinopril [Prinivil] 20 mg PO BID 02/12/15 08/16/18 History PARoxetine HCL 40 mg PO DAILY 02/12/15 08/16/18 History SUMAtriptan SUCCINATE [Imitrex] 100 mg PO TID PRN 02/12/15 08/16/18 History Cyanocobalamin [Vitamin B-12 1,000 mcg SQ QMONTH 02/04/16 08/16/18 History Injection] Dexlansoprazole [Dexilant] 60 mg PO DAILY 02/04/16 08/16/18 History Fluticasone Nasal [place] [Flonase 1 spray EA NOSTRIL DAILY 02/04/16 08/16/18 History Nasal [place]] Fluticasone/Salmeterol [Advair 1 inhalation PO RT-BID 02/04/16 08/16/18 History 100-50 Diskus] Atorvastatin [Lipitor] 80 mg PO DAILY 08/16/18 08/16/18 History Ciprofloxacin HCl [Cipro] 500 mg PO BID 08/16/18 08/16/18 History HYDROcodone/APAP 10-325MG [[place] 1 tab PO DAILY PRN 08/16/18 08/16/18 History 10-325] INSULIN LISPRO (humaLOG) [humaLOG] 15 units SQ BID 08/16/18 08/16/18 History Insulin Glargine,Hum.rec.anlog 25 unit SQ HS 08/16/18 08/16/18 History [Lantus Solostar] Orphenadrine Citrate [Orphenadrine 100 mg PO BID 08/16/18 08/16/18 History Citrate ER] Pregabalin [Lyrica] 100 mg PO BID 08/16/18 08/16/18 History Ranitidine HCl 300 mg PO DAILY 08/16/18 08/16/18 History busPIRone HCL 15 mg PO BID 08/16/18 08/16/18 History fentaNYL 50MCG/HR PATCH [Duragesic 50 mcg TRANSDERM Q72H 08/16/18 08/16/18 History 50MCG/HR] metFORMIN HCL ER [Glucophage Xr] 1,000 mg PO BID 08/16/18 08/16/18 History Allergies Allergy/AdvReac Type Severity Reaction Status Date / Time codeine Allergy Nausea Verified 08/16/18 17:02 Sulfa (Sulfonamide Allergy Nausea Verified 08/16/18 17:02 Antibiotics) Physical Exam Vitals: Vital Signs Temp Pulse Pulse Resp BP BP Pulse Ox 08/17/18 04:00 98.4 F 58 L 15 119/74 95 08/17/18 00:50 98.3 F 75 15 150/90 95 08/16/18 22:00 98.2 F 70 15 160/91 95 08/16/18 20:42 98.2 F 70 15 97 08/16/18 19:10 98.5 F 67 20 154/80 96 08/16/18 18:41 100 F H 66 18 154/80 98 08/16/18 15:47 100.2 F H 98 18 177/89 99 08/16/18 15:43 20 08/16/18 14:23 98.8 F 106 H 18 136/84 96 Intake and Output 08/16/18 08/17/18 08/17/18 22:59 06:59 14:59 Intake Total 58 Balance 58 Intake: Intake, IV Titration 58 Amount Heparin Sod,Pork in 0.45% 58 NaCl 25,000 unit In 0.45 % NaCl 1 250ml.bag @ 10. 914 UNITS/KG/HR 10 mls/hr IV .Q24H [facility] Rx#: [id number] Other: # Voids 1 Weight 90.4 kg PHYSICAL EXAMINATION: GENERAL: 68-year-old female in no acute distress at the time of my examination HEENT: Head is atraumatic, normocephalic. Pupils equal, round. Sclera anicteric. Conjunctiva are clear. Mucous membranes of the mouth are moist. Neck is supple. There is no elevated jugular venous pressure. No carotid bruit is heard. HEART EXAMINATION: Heart S1, S2 normal. No murmur or gallop heard. CHEST EXAMINATION: Lungs reveal fine wheezing and rhonchi throughout. ABDOMEN: Soft, nontender. Bowel sounds are heard. No organomegaly noted. EXTREMITIES: 2+ peripheral pulses with no evidence of peripheral edema and no calf tenderness noted. NEUROLOGIC patient is awake, alert and oriented 3 . . Results 08/17/18 03:28 08/16/18 16:00 Cardiac Enzymes 08/16/18 08/16/18 08/16/18 Range/Units 16:00 16:00 23:20 AST 34 (14-36) U/L CK-MB (CK-2) 2.6 H 2.6 H (0.0-2.4) ng/mL Troponin I 0.049 H* 0.051 H* (0.000-0.034) ng/mL 08/17/18 Range/Units 03:28 AST (14-36) U/L CK-MB (CK-2) 2.3 (0.0-2.4) ng/mL Troponin I 0.041 H* (0.000-0.034) ng/mL Coagulation 08/16/18 08/16/18 08/17/18 Range/Units 16:00 23:20 05:55 PT 12.4 H (9.0-12.0) sec APTT 17.9 L 40.7 H 48.8 H (22.0-30.0) sec Lipids 08/17/18 Range/Units 03:28 Triglycerides 137 (<150) mg/dL Cholesterol 102 (<200) mg/dL HDL Cholesterol 38 L (40-60) mg/dL CBC 08/16/18 08/17/18 Range/Units 16:00 03:28 WBC 8.2 10.1 (3.8-10.6) k/uL RBC 4.88 4.41 (3.80-5.40) m/uL Hgb 13.1 11.7 (11.4-16.0) gm/dL Hct 41.7 36.9 (34.0-46.0) % Plt Count 249 232 (150-450) k/uL Comprehensive Metabolic Panel 08/16/18 Range/Units 16:00 Sodium 136 L (137-145) mmol/L Potassium 4.5 (3.5-5.1) mmol/L Chloride 102 (98-107) mmol/L Carbon Dioxide 23 (22-30) mmol/L BUN 38 H (7-17) mg/dL Creatinine 1.49 H (0.52-1.04) mg/dL Glucose 588 H* (74-99) mg/dL Calcium 9.7 (8.4-10.2) mg/dL AST 34 (14-36) U/L ALT 29 (9-52) U/L Alkaline Phosphatase <20 L (38-126) U/L Total Protein 6.7 (6.3-8.2) g/dL Albumin 4.0 (3.5-5.0) g/dL Current Medications Generic Name Dose Route Start Last Admin Trade Name Freq PRN Reason Stop Dose Admin Albuterol/Ipratropium 3 ml 08/17/18 08:00 Duoneb 0.5 Mg-3 Mg/3 Ml Soln INHALATION RT-QID [facility] Albuterol/Ipratropium 3 ml 08/16/18 21:42 Duoneb 0.5 Mg-3 Mg/3 Ml Soln INHALATION RT-Q2H PRN Shortness Of Breath Or Wheezing Budesonide/Formoterol Fumarate 2 puff 08/17/18 08:00 Symbicort 80-4.5 Mcg Inhaler INHALATION RT-BID [facility] Buspirone HCl 15 mg 08/16/18 21:45 08/16/18 22:42 Buspar PO 15 mg BID [place] Administration Ciprofloxacin 500 mg 08/17/18 09:00 Cipro PO BID [facility] Cyclobenzaprine HCl 10 mg 08/16/18 21:38 Flexeril PO BID PRN [facility] Heparin Sodium (Porcine) 0 unit 08/16/18 17:48 08/17/18 00:30 Heparin IV 2,275 unit PER PROTOCOL PRN Administration Low PTT Protocol Heparin Sodium/Sodium Chloride 250 mls @ 10 mls/hr 08/16/18 18:00 08/17/18 00 :26 25,000 unit/ Sodium Chloride IV 12.914 units/kg/hr .Q24H [facility] 11.83 mls/hr Titration Protocol 10.914 UNITS/KG/HR Insulin Detemir 25 unit 08/17/18 21:00 Levemir SQ HS [facility] Lisinopril 20 mg 08/16/18 21:45 08/16/18 22:42 Zestril PO 20 mg BID [place] Administration Melatonin 6 mg 08/16/18 21:41 08/16/18 22:43 Melatonin PO 6 mg HS PRN Administration Insomnia Metformin HCl 1,000 mg 08/17/18 09:00 Glucophage PO BID [facility] Nitroglycerin 1 inch 08/16/18 18:00 08/17/18 04:59 Nitro-Bid Oint TOPICAL Not Given Q6HR [facility] Pregabalin 100 mg 08/16/18 21:45 08/16/18 22:43 Lyrica PO 100 mg BID [place] Administration Intake and Output 08/16/18 08/17/18 08/17/18 22:59 06:59 14:59 Intake Total 58 Balance 58 Intake: Intake, IV Titration 58 Amount Heparin Sod,Pork in 0.45% 58 NaCl 25,000 unit In 0.45 % NaCl 1 250ml.bag @ 10. 914 UNITS/KG/HR 10 mls/hr IV .Q24H [facility] Rx#: [id number] Other: # Voids 1 Weight 90.4 kg 08/17/18 03:28 08/16/18 16:00 EKG Interpretations (text) EKG shows normal sinus rhythm with incomplete right bundle branch block pattern and evidence of LVH strain pattern. Assessment and Plan Plan: Assessment and plan #1 symptoms of chest congestion with associated fever and productive cough, suggestive of possible tracheobronchitis #2 chest pain, atypical for acute coronary syndrome. Troponins 0.04, 0.05, 0.04. Troponin abnormality not consistent with acute coronary syndrome with no significant rise and fall pattern. EKG shows normal sinus rhythm with incomplete right bundle branch block pattern. #3 hypertension #4 diabetes uncontrolled #5 hyperlipidemia #6 anxiety and depression #7 PTSD #8 chronic pain #9 prior TIA #10 family history of premature coronary artery disease Plan We will obtain an echocardiogram with Doppler study. Discontinue Nitropaste, put the patient on a baby aspirin, statin. Once the patient's symptoms of fever and possible tracheobronchitis clear, patient may benefit from an outpatient stress test down the road. Further recommendations to follow. DNP note has been reviewed, I agree with a documented findings and plan of care. Patient was seen and examined.
[2018-08-17] MEDS: IPRATROPIUM-ALBUTEROL 3 ML NEB INHALATION SCH ×4 (08:33→20:49)
[2018-08-17] MEDS ORDERED: CIPROFLOXACIN HCL 500 MG TAB PO SCH (09:00)
[2018-08-17] MEDS ORDERED: FAMOTIDINE 20 MG/2 ML VIAL IV SCH (09:00)
--- NOTE | 2018-08-17 09:02 | P.HPIM ---
History of Present Illness This is a pleasant 68 years old female with past medical history of heart failure, hyperlipidemia, hypertension, type 2 diabetes mellitus, migraine, GERD and Espinoza's esophagus, patient has chronic neck pain and she follow up with Dr. Colunga the neurologist whom she saw about 1 week earlier and one day prior to coming to the hospital. This time she presents because of worsening dyspnea of one week duration associated with cough and tenacious whitish phlegm and no hemoptysis. No chest pain. Patient has moved recently from [place] to live with her son and she has a house in [place]. She went to Dr. Bartlett urgent care who prescribed her some antibiotics , Cipro for her upper respiratory tract infection and UTI as patient also was complaining of from dysuria, however patient did not feel better and she came to emergency room. On admission, Vitas looks stable. However on admission he had low-grade fever 100.2. CBC was unremarkable. Creatinine is elevated at 1.49, baseline 0.8. High lactic acid at 2.5, down to 1.1 which is WNL. Glucose was elevated at 588 on admission. Elevated troponin at 0.05 and 0.04. Influenza is negative. Chest x-ray: No acute process Egg Gatherer already evaluated the patient and recommended to start patient on aspirin and statin. No evidence of acute coronary syndrome. Recommended echocardiogram and advised patient for stress test as an outpatient. Review of Systems CONSTITUTIONAL: No fever, no malaise, no fatigue. HEENT: No recent visual problems or hearing problems. Denied any sore throat. CARDIOVASCULAR: No orthopnea, PND, no palpitations, no syncope. PULMONARY: No shortness of breath, no cough, no hemoptysis. GASTROINTESTINAL: No diarrhea, no nausea, no vomiting, no abdominal pain. Normoactive bowel sounds. NEUROLOGICAL: No headaches, no weakness, no numbness. HEMATOLOGICAL: Denies any bleeding or petechiae. GENITOURINARY: Denies any burning micturition, frequency, or urgency. MUSCULOSKELETAL/RHEUMATOLOGICAL: Denies any joint pain, swelling, or any muscle pain. ENDOCRINE: Denies any polyuria or polydipsia. Past Medical History Past Medical History: Heart Failure, GERD/Reflux, Hyperlipidemia, Hypertension, Thyroid Disorder Additional Past Medical History / Comment(s): migraine, barretts esophagus History of Any Multi-Drug Resistant Organisms: None Reported Past Surgical History: Hernia Repair, Joint Replacement, Tonsillectomy Additional Past Surgical History / Comment(s): Partial hysterectomy Past Anesthesia/Blood Transfusion Reactions: No Reported Reaction Past Psychological History: Anxiety, Depression, Panic Disorder Smoking Status: Never smoker Past Alcohol Use History: None Reported Past Drug Use History: None Reported - Past Family History Mother Family Medical History: CVA/TIA, Myocardial Infarction ([place]) Father Family Medical History: Cancer, Prostate Disorder Additional Family Medical History / Comment(s): prostate ca and lymphoma, bone ca Medications and Allergies Home Medications Medication Instructions Recorded Confirmed Type Fenofibrate,Micronized 200 mg PO DAILY 02/12/15 08/16/18 History [Fenofibrate] Lisinopril [Prinivil] 20 mg PO BID 02/12/15 08/16/18 History PARoxetine HCL 40 mg PO DAILY 02/12/15 08/16/18 History SUMAtriptan SUCCINATE [Imitrex] 100 mg PO TID PRN 02/12/15 08/16/18 History Cyanocobalamin [Vitamin B-12 1,000 mcg SQ QMONTH 02/04/16 08/16/18 History Injection] Dexlansoprazole [Dexilant] 60 mg PO DAILY 02/04/16 08/16/18 History Fluticasone Nasal [place] [Flonase 1 spray EA NOSTRIL DAILY 02/04/16 08/16/18 History Nasal [place]] Fluticasone/Salmeterol [Advair 1 inhalation PO RT-BID 02/04/16 08/16/18 History 100-50 Diskus] Atorvastatin [Lipitor] 80 mg PO DAILY 08/16/18 08/16/18 History Ciprofloxacin HCl [Cipro] 500 mg PO BID 08/16/18 08/16/18 History HYDROcodone/APAP 10-325MG [[place] 1 tab PO DAILY PRN 08/16/18 08/16/18 History 10-325] INSULIN LISPRO (humaLOG) [humaLOG] 15 units SQ BID 08/16/18 08/16/18 History Insulin Glargine,Hum.rec.anlog 25 unit SQ HS 08/16/18 08/16/18 History [Lantus Solostar] Orphenadrine Citrate [Orphenadrine 100 mg PO BID 08/16/18 08/16/18 History Citrate ER] Pregabalin [Lyrica] 100 mg PO BID 08/16/18 08/16/18 History Ranitidine HCl 300 mg PO DAILY 08/16/18 08/16/18 History busPIRone HCL 15 mg PO BID 08/16/18 08/16/18 History fentaNYL 50MCG/HR PATCH [Duragesic 50 mcg TRANSDERM Q72H 08/16/18 08/16/18 History 50MCG/HR] metFORMIN HCL ER [Glucophage Xr] 1,000 mg PO BID 08/16/18 08/16/18 History Allergies Allergy/AdvReac Type Severity Reaction Status Date / Time codeine Allergy Nausea Verified 08/16/18 17:02 Sulfa (Sulfonamide Allergy Nausea Verified 08/16/18 17:02 Antibiotics) Physical Exam Vitals: Vital Signs Temp Pulse Pulse Resp BP BP Pulse Ox 08/17/18 08:33 71 16 94 L 08/17/18 04:00 98.4 F 58 L 15 119/74 95 08/17/18 00:50 98.3 F 75 15 150/90 95 08/16/18 22:00 98.2 F 70 15 160/91 95 08/16/18 20:42 98.2 F 70 15 97 08/16/18 19:10 98.5 F 67 20 154/80 96 08/16/18 18:41 100 F H 66 18 154/80 98 08/16/18 15:47 100.2 F H 98 18 177/89 99 08/16/18 15:43 20 08/16/18 14:23 98.8 F 106 H 18 136/84 96 Intake and Output 08/16/18 08/17/18 08/17/18 22:59 06:59 14:59 Intake Total 58 240 Balance 58 240 Intake: Intake, IV Titration 58 Amount Heparin Sod,Pork in 0.45% 58 NaCl 25,000 unit In 0.45 % NaCl 1 250ml.bag @ 10. 914 UNITS/KG/HR 10 mls/hr IV .Q24H [facility] Rx#: [id number] Oral 240 Other: # Voids 1 Weight 90.4 kg GENERAL: The patient is alert and oriented x3, not in any acute distress. Well developed, well nourished. HEENT: Pupils are round and equally reacting to light. EOMI. No scleral icterus. No conjunctival pallor. Normocephalic, atraumatic. No pharyngeal erythema. No thyromegaly. CARDIOVASCULAR: S1 and S2 present. No murmurs, rubs, or gallops. -PULMONARY: Chest is clear to auscultation, scattered wheezing with harsh sounds on both sides, pulmonary congestion ABDOMEN: Soft, nontender, nondistended, normoactive bowel sounds. No palpable organomegaly. MUSCULOSKELETAL: No joint swelling or deformity. EXTREMITIES: No cyanosis, clubbing, or pedal edema. NEUROLOGICAL: Gross neurological examination did not reveal any focal deficits. SKIN: No rashes. Results CBC & Chem 7: 08/17/18 03:28 08/16/18 16:00 Labs: Abnormal Lab Results - Last 24 Hours (Table) 08/16/18 08/16/18 08/16/18 Range/Units 15:19 16:00 16:00 RDW 17.1 H (11.5-15.5) % PT (9.0-12.0) sec INR (<1.2) APTT (22.0-30.0) sec Sodium 136 L (137-145) mmol/L BUN 38 H (7-17) mg/dL Creatinine 1.49 H (0.52-1.04) mg/dL Glucose 588 H* (74-99) mg/dL POC Glucose (mg/dL) (75-99) mg/dL Plasma Lactic Acid [place] (0.7-2.0) mmol/L Alkaline Phosphatase <20 L (38-126) U/L CK-MB (CK-2) (0.0-2.4) ng/mL Troponin I (0.000-0.034) ng/mL HDL Cholesterol (40-60) mg/dL Urine Protein 1+ H (Negative) Urine Glucose (UA) 4+ H (Negative) Ur Leukocyte Esterase Trace H (Negative) Urine Mucus Rare H (None) /hpf 08/16/18 08/16/18 08/16/18 Range/Units 16:00 16:00 16:00 RDW (11.5-15.5) % PT 12.4 H (9.0-12.0) sec INR 1.2 H (<1.2) APTT 17.9 L (22.0-30.0) sec Sodium (137-145) mmol/L BUN (7-17) mg/dL Creatinine (0.52-1.04) mg/dL Glucose (74-99) mg/dL POC Glucose (mg/dL) (75-99) mg/dL Plasma Lactic Acid [place] 2.5 H* (0.7-2.0) mmol/L Alkaline Phosphatase (38-126) U/L CK-MB (CK-2) 2.6 H (0.0-2.4) ng/mL Troponin I 0.049 H* (0.000-0.034) ng/mL HDL Cholesterol (40-60) mg/dL Urine Protein (Negative) Urine Glucose (UA) (Negative) Ur Leukocyte Esterase (Negative) Urine Mucus (None) /hpf 08/16/18 08/16/18 08/16/18 Range/Units 18:09 20:08 21:05 RDW (11.5-15.5) % PT (9.0-12.0) sec INR (<1.2) APTT (22.0-30.0) sec Sodium (137-145) mmol/L BUN (7-17) mg/dL Creatinine (0.52-1.04) mg/dL Glucose (74-99) mg/dL POC Glucose (mg/dL) 400 H 264 H 227 H (75-99) mg/dL Plasma Lactic Acid [place] (0.7-2.0) mmol/L Alkaline Phosphatase (38-126) U/L CK-MB (CK-2) (0.0-2.4) ng/mL Troponin I (0.000-0.034) ng/mL HDL Cholesterol (40-60) mg/dL Urine Protein (Negative) Urine Glucose (UA) (Negative) Ur Leukocyte Esterase (Negative) Urine Mucus (None) /hpf 08/16/18 08/16/18 08/17/18 Range/Units 23:20 23:20 03:28 RDW 16.8 H (11.5-15.5) % PT (9.0-12.0) sec INR (<1.2) APTT 40.7 H (22.0-30.0) sec Sodium (137-145) mmol/L BUN (7-17) mg/dL Creatinine (0.52-1.04) mg/dL Glucose (74-99) mg/dL POC Glucose (mg/dL) (75-99) mg/dL Plasma Lactic Acid [place] (0.7-2.0) mmol/L Alkaline Phosphatase (38-126) U/L CK-MB (CK-2) 2.6 H (0.0-2.4) ng/mL Troponin I 0.051 H* (0.000-0.034) ng/mL HDL Cholesterol (40-60) mg/dL Urine Protein (Negative) Urine Glucose (UA) (Negative) Ur Leukocyte Esterase (Negative) Urine Mucus (None) /hpf 08/17/18 08/17/18 08/17/18 Range/Units 03:28 03:28 05:55 RDW (11.5-15.5) % PT (9.0-12.0) sec INR (<1.2) APTT 48.8 H (22.0-30.0) sec Sodium (137-145) mmol/L BUN (7-17) mg/dL Creatinine (0.52-1.04) mg/dL Glucose (74-99) mg/dL POC Glucose (mg/dL) (75-99) mg/dL Plasma Lactic Acid [place] (0.7-2.0) mmol/L Alkaline Phosphatase (38-126) U/L CK-MB (CK-2) (0.0-2.4) ng/mL Troponin I 0.041 H* (0.000-0.034) ng/mL HDL Cholesterol 38 L (40-60) mg/dL Urine Protein (Negative) Urine Glucose (UA) (Negative) Ur Leukocyte Esterase (Negative) Urine Mucus (None) /hpf 08/17/18 Range/Units 05:59 RDW (11.5-15.5) % PT (9.0-12.0) sec INR (<1.2) APTT (22.0-30.0) sec Sodium (137-145) mmol/L BUN (7-17) mg/dL Creatinine (0.52-1.04) mg/dL Glucose (74-99) mg/dL POC Glucose (mg/dL) 146 H (75-99) mg/dL Plasma Lactic Acid [place] (0.7-2.0) mmol/L Alkaline Phosphatase (38-126) U/L CK-MB (CK-2) (0.0-2.4) ng/mL Troponin I (0.000-0.034) ng/mL HDL Cholesterol (40-60) mg/dL Urine Protein (Negative) Urine Glucose (UA) (Negative) Ur Leukocyte Esterase (Negative) Urine Mucus (None) /hpf Thrombosis Risk Factor Assmnt - Choose All That Apply Any of the Below Risk Factors Present?: No Other Risk Factors: Yes Each Risk Factor Represents 2 Points: Age 61-74 years Other congenital or acquired thrombophilia - If yes, enter type in comment: No Thrombosis Risk Factor Assessment Total Risk Factor Score: 2 Thrombosis Risk Factor Assessment Level: Low Risk Assessment and Plan Assessment: Upper respiratory tract infection, with possible acute tracheobronchitis. Elevated troponin, likely due to acute coronary syndrome. Acute kidney injury Elevated lactic acid, resolved Essential hypertension Hyperlipidemia Type 2 diabetes mellitus, uncontrolled with hyperglycemia on admission History of migraine History of GERD and Espinoza's esophagus History of heart failure, not in active tissue. Plan: This is a pleasant 68 years old female who presents with upper respiratory tract infection, elevated troponins are not consistent with ACS. Cardiology evaluation is appreciated. Recommended to add baby aspirin and statin and outpatient stress test. Echocardiogram was ordered. Continue with antibiotic and follow-up culture results. Labs and medication were reviewed.. Continue same treatment. Continue with symptomatic treatment. Resume home medication. Monitor lytes and vitals. DVT and GI prophylaxis. Further recommendations of the clinical course of the patient DVT prophylaxis: Subcutaneous heparin GI Prophylaxis: Pepcid PT/OT: Pending Prognosis is guarded
[2018-08-17] MEDS: metFORMIN 500 MG TAB PO SCH ×2 (09:56→20:16)
[2018-08-17] MEDS: busPIRone HCl 5 MG TAB PO SCH ×2 (09:57→20:15)
[2018-08-17] MEDS: HEPARIN SODIUM,PORCINE 5,000 UNIT/ML 1 ML VIAL SQ SCH ×3 (09:57→20:16)
[2018-08-17] MEDS: ATORVASTATIN 40 MG TAB PO SCH (09:57)
[2018-08-17] MEDS: PREGABALIN 100 MG CAP PO SCH ×2 (09:58→20:16)
[2018-08-17] MEDS: METOPROLOL TARTRATE 25 MG TAB PO SCH ×2 (09:58→20:16)
[2018-08-17] MEDS: LISINOPRIL 20 MG TAB PO SCH ×2 (09:58→20:16)
[2018-08-17] MEDS: ASPIRIN 81 MG PO SCH (09:58)
[2018-08-17 11:41] LABS: Glucose,Whole Blood 214 mg/dL (75-99)
--- NOTE | 2018-08-17 11:48 | ECHOF ---
Referral Reason:chest pain MEASUREMENTS -------- HEIGHT: 165.1 cm WEIGHT: 90.3 kg BP: 119/74 RVIDd: 2.7 cm (< 3.3) IVSd: 1.3 cm (0.6 - 1.1) LVIDd: 4.5 cm (3.9 - 5.3) LVPWd: 1.4 cm (0.6 - 1.1) IVSs: 1.9 cm LVIDs: 3.2 cm LVPWs: 1.6 cm LA Diam: 3.7 cm (2.7 - 3.8) LAESV Index (A-L): 37.56 ml/m Ao Diam: 3.4 cm (2.0 - 3.7) AV Cusp: 2.3 cm (1.5 - 2.6) MV EXCURSION: 12.148 mm (> 18.000) MV EF SLOPE: 35 mm/s (70 - 150) EPSS: 0.4 cm MV E Benitez: 0.86 m/s MV DecT: 317 ms MV A Benitez: 1.18 m/s MV E/A Ratio: 0.73 AV maxP.67 mmHg AV meanP.58 mmHg RAP: 5.00 mmHg RVSP: 39.09 mmHg FINDINGS -------- Sinus rhythm. This was a technically adequate study. The left ventricular size is normal. There is moderate concentric left ventricular hypertrophy. O verall left ventricular systolic function is normal with, an EF between 65 - 70 %. The right ventricle is normal in size. LA is moderately dilated 34-39 ml/m2 The right atrium is normal in size. The aortic valve is trileaflet and appears structurally normal. The mitral valve is normal. Mild tricuspid regurgitation present. There is mild pulmonary hypertension. The right ventricular systolic pressure, as measured by Doppler, is 39.09mmHg. Trace/mild (physiologic) pulmonic regurgitation. The aortic root size is normal. Normal inferior vena cava with normal inspiratory collapse consistent with estimated right atrial pre ssure of 5 mmHg. There is no pericardial effusion. CONCLUSIONS -------- 1. Sinus rhythm. 2. This was a technically adequate study. 3. The left ventricular size is normal. 4. There is moderate concentric left ventricular hypertrophy. 5. Overall left ventricular systolic function is normal with, an EF between 65 - 70 %. 6. The right ventricle is normal in size. 7. LA is moderately dilated 34-39 ml/m2 8. The right atrium is normal in size. 9. The aortic valve is trileaflet and appears structurally normal. 10. The mitral valve is normal. 11. Mild tricuspid regurgitation present. 12. There is mild pulmonary hypertension. 13. The right ventricular systolic pressure, as measured by Doppler, is 39.09mmHg. 14. Trace/mild (physiologic) pulmonic regurgitation. 15. The aortic root size is normal. 16. Normal inferior vena cava with normal inspiratory collapse consistent with estimated right atrial pressure of 5 mmHg. 17. There is no pericardial effusion. MEMORIAL ADVISER: Josseline Hamilton RDCS
[2018-08-17 15:01] VITALS: BMI 33.1
[2018-08-17 16:57] LABS: Glucose,Whole Blood 168 mg/dL (75-99)
[2018-08-17 20:41] LABS: Glucose,Whole Blood 262 mg/dL (75-99)
[2018-08-17] MEDS: INSULIN DETEMIR (LEVEMIR) 100 UNIT/ML SYR SQ SCH (20:57)
[2018-08-17] MEDS: SYMBICORT 80-4.5 MCG INHALER INHALATION SCH (20:58)
[2018-08-17] MEDS: SODIUM CHLORIDE 0.9% 1,000 ML IV SCH (22:46)
[2018-08-18 05:54] LABS: Glucose,Whole Blood 72 mg/dL (75-99)
[2018-08-18 05:59] LABS: Anisocytosis Slight; Basophils % (A) 1 %; Eosinophils # (A) 0.3 k/uL (0-0.7); Eosinophils % (A) 3 %; HCT 38.6 % (34.0-46.0); Hypochromasia Slight; Lymphocytes # (A) 4.3 k/uL (1.0-4.8); Lymphocytes % (A) 51 %; MCH 26.3 pg (25.0-35.0); MCHC 31.2 g/dL (31.0-37.0); MCV 84.5 fL (80.0-100.0); Mean Platelet Volume 7.8; Monocytes # (A) 0.3 k/uL (0-1.0); Monocytes % (A) 4 %; Neutrophils # (A) 3.4 k/uL (1.3-7.7); Neutrophils % (A) 40 %; Platelet Count 233 k/uL (150-450); RBC 4.57 m/uL (3.80-5.40); RDW 17.2 % (11.5-15.5); WBC 8.4 k/uL (3.8-10.6)
[2018-08-18 06:10] LABS: Calcium 9.6 mg/dL (8.4-10.2); Potassium 4.3 mmol/L (3.5-5.1)
[2018-08-18] MEDS: IPRATROPIUM-ALBUTEROL 3 ML NEB INHALATION SCH ×4 (07:16→19:36)
[2018-08-18] MEDS: SYMBICORT 80-4.5 MCG INHALER INHALATION SCH ×2 (07:17→19:36)
[2018-08-18] MEDS: METOPROLOL TARTRATE 25 MG TAB PO SCH ×2 (08:20→20:44)
[2018-08-18] MEDS: SODIUM CHLORIDE 0.9% 1,000 ML IV SCH ×2 (08:20→17:41)
[2018-08-18] MEDS: busPIRone HCl 5 MG TAB PO SCH ×2 (08:20→20:43)
[2018-08-18] MEDS: ATORVASTATIN 40 MG TAB PO SCH (08:20)
[2018-08-18] MEDS: ASPIRIN 81 MG PO SCH (08:20)
[2018-08-18] MEDS: LISINOPRIL 20 MG TAB PO SCH ×2 (08:20→20:44)
[2018-08-18] MEDS: metFORMIN 500 MG TAB PO SCH ×2 (08:20→20:44)
[2018-08-18] MEDS: FAMOTIDINE 20 MG TAB PO SCH (08:20)
[2018-08-18] MEDS: PREGABALIN 100 MG CAP PO SCH ×2 (08:20→20:44)
[2018-08-18] MEDS: HEPARIN SODIUM,PORCINE 5,000 UNIT/ML 1 ML VIAL SQ SCH ×2 (08:21→20:43)
[2018-08-18 11:26] LABS: Glucose,Whole Blood 148 mg/dL (75-99)
[2018-08-18 15:09] LABS: Hemoglobin A1C 7.5 % (4.0-6.0)
--- NOTE | 2018-08-18 15:10 | P.PN ---
Subjective Progress Note Date: 08/18/18 This is a 68-year-old female with history of diabetes, hypertension, hyperlipidemia, nonsmoker, chronic pain, GERD, Espinoza's esophagus, bipolar disorder, history of kidney stones, anxiety, depression, short term memory loss , hypothyroidism, PTSD, and prior TIAs. She presents to the hospital on this admission with symptoms of fever, chest congestion and cough of productive yellow sputum, she also states that she had 1 episode of midsternal chest pressure and heaviness lasting seconds. Troponins were drawn in the emergency room which came back to be abnormal and for this reason a cardiology consultation at been requested. EKG on presentation here showed a normal sinus rhythm with incomplete right bundle branch block pattern and evidence of LVH strain pattern. Chest x-ray did not reveal any acute process. I pressure on arrival here 136/80 with a heart rate of 100, 96% on room air, she has been running temperatures, 100.2 100. Blood pressure this morning 119/74 with a heart rate in the 70s. White blood cell count 10.1, hemoglobin 11.7, platelet count 232. Sodium 136, potassium 4.5, BUN 38, creatinine 1.4. Blood glucose on arrival 588, troponins 0.04, 0.05, 0.04. BNP 1000. Influenza A and B are negative. At the time of my examination this morning, patient continues to have productive cough, denies any chest pain at present. 08/18/2018 Patient seen and examined this morning, continues to have productive cough, denies any chest discomfort. Echocardiogram with Doppler study was performed which revealed an ejection fraction of 60-65%. Hemodynamically stable. Objective - Vital Signs Vital signs: Vital Signs Temp 97.5 F L 08/18/18 11:46 Pulse 55 L 08/18/18 11:47 Resp 20 08/18/18 11:47 BP 103/69 08/18/18 11:46 Pulse Ox 94 L 08/18/18 11:46 Intake & Output 08/17/18 08/18/18 08/18/18 18:59 06:59 18:59 Intake Total 562 160 480 Balance 562 160 480 Weight 90.4 kg 90.2 kg Intake: IV 160 0.9 160 Oral 562 480 Other: Voiding Method Toilet Toilet # Voids 1 3 - Exam PHYSICAL EXAMINATION: GENERAL: 68-year-old female in no acute distress at the time of my examination HEENT: Head is atraumatic, normocephalic. Pupils equal, round. Sclera anicteric. Conjunctiva are clear. Mucous membranes of the mouth are moist. Neck is supple. There is no elevated jugular venous pressure. No carotid bruit is heard. HEART EXAMINATION: Heart S1, S2 normal. No murmur or gallop heard. CHEST EXAMINATION: Lungs reveal fine wheezing and rhonchi throughout. ABDOMEN: Soft, nontender. Bowel sounds are heard. No organomegaly noted. EXTREMITIES: 2+ peripheral pulses with no evidence of peripheral edema and no calf tenderness noted. NEUROLOGIC patient is awake, alert and oriented 3 . . - Labs CBC & Chem 7: 08/18/18 05:19 08/18/18 05:19 Labs: Abnormal Lab Results - Last 24 Hours (Table) 08/17/18 08/17/18 08/18/18 Range/Units 16:56 20:36 05:19 RDW 17.2 H (11.5-15.5) % Chloride (98-107) mmol/L BUN (7-17) mg/dL Creatinine (0.52-1.04) mg/dL Glucose (74-99) mg/dL POC Glucose (mg/dL) 168 H 262 H (75-99) mg/dL 08/18/18 08/18/18 08/18/18 Range/Units 05:19 05:40 11:16 RDW (11.5-15.5) % Chloride 110 H (98-107) mmol/L BUN 36 H (7-17) mg/dL Creatinine 1.42 H (0.52-1.04) mg/dL Glucose 69 L (74-99) mg/dL POC Glucose (mg/dL) 72 L 148 H (75-99) mg/dL Microbiology - Last 24 Hours (Table) 08/16/18 16:00 Blood Culture - Preliminary Blood No Growth after 24 hours Assessment and Plan Plan: Assessment and plan #1 symptoms of chest congestion with associated fever and productive cough, suggestive of possible tracheobronchitis #2 chest pain, atypical for acute coronary syndrome. Troponins 0.04, 0.05, 0.04. Troponin abnormality not consistent with acute coronary syndrome with no significant rise and fall pattern. EKG shows normal sinus rhythm with incomplete right bundle branch block pattern. #3 hypertension #4 diabetes uncontrolled #5 hyperlipidemia #6 anxiety and depression #7 PTSD #8 chronic pain #9 prior TIA #10 family history of premature coronary artery disease Plan From cardiology's perspective, patient may be able to be discharged home. We will make a follow-up appointment in the office post discharge. DNP note has been reviewed, I agree with a documented findings and plan of care. Patient was seen and examined.
[2018-08-18 16:06] LABS: Glucose,Whole Blood 207 mg/dL (75-99)
[2018-08-18] MEDS: INSULIN DETEMIR (LEVEMIR) 100 UNIT/ML SYR SQ SCH (20:43)
[2018-08-18 20:44] LABS: Glucose,Whole Blood 255 mg/dL (75-99)
[2018-08-18] MEDS: MELATONIN 3 MG TABLET PO PRN (22:22)
--- NOTE | 2018-08-18 23:19 | P.PN ---
Subjective This is a pleasant 68 years old female with past medical history of heart failure, hyperlipidemia, hypertension, type 2 diabetes mellitus, migraine, GERD and Espinoza's esophagus, patient has chronic neck pain and she follow up with Dr. Colunga the neurologist whom she saw about 1 week earlier and one day prior to coming to the hospital. This time she presents because of worsening dyspnea of one week duration associated with cough and tenacious whitish phlegm and no hemoptysis. No chest pain. Patient has moved recently from [place] to live with her son and she has a house in [place]. She went to Dr. Bartlett urgent care who prescribed her some antibiotics , Cipro for her upper respiratory tract infection and UTI as patient also was complaining of from dysuria, however patient did not feel better and she came to emergency room. On admission, Haven looks stable. However on admission he had low-grade fever 100.2. CBC was unremarkable. Creatinine is elevated at 1.49, baseline 0.8. High lactic acid at 2.5, down to 1.1 which is WNL. Glucose was elevated at 588 on admission. Elevated troponin at 0.05 and 0.04. Influenza is negative. Chest x-ray: No acute process [employer] already evaluated the patient and recommended to start patient on aspirin and statin. No evidence of acute coronary syndrome. Recommended echocardiogram and advised patient for stress test as an outpatient. 08/18/2018 pt is still dyspneic and she started to cough some phlegm, no chest pain , she is still on oxygen and is wheezing on exam, pulmonary follow up is appreciated, pt is not ready for discharge for now. continue with same treatment and fu sputum culture. Objective - Vital Signs Vital signs: Vital Signs Temp 98.3 F 08/18/18 20:00 Pulse 77 08/18/18 20:00 Resp 18 08/18/18 20:00 BP 137/72 08/18/18 20:00 Pulse Ox 93 L 08/18/18 20:00 Intake & Output 08/18/18 08/18/18 08/19/18 06:59 18:59 06:59 Intake Total 160 1370 Output Total 325 Balance 160 1045 Weight 90.2 kg Intake: IV 160 0.9 160 Intake, IV Titration 650 Amount Sodium Chloride 0.9% 1, 600 000 ml @ 100 mls/hr IV . Q10H [facility] Rx#:[id number] cefTRIAXone 1 gm In 50 Sodium Chloride 0.9% 50 ml @ 100 mls/hr IVPB Q24H [facility] Rx#:[id number] Oral 720 Output: Urine 325 Other: Voiding Method Toilet Toilet Toilet # Voids 1 - Labs CBC & Chem 7: 08/18/18 05:19 08/18/18 05:19 Labs: Abnormal Lab Results - Last 24 Hours (Table) 08/18/18 08/18/18 08/18/18 Range/Units 05:19 05:19 05:19 RDW 17.2 H (11.5-15.5) % Chloride 110 H (98-107) mmol/L BUN 36 H (7-17) mg/dL Creatinine 1.42 H (0.52-1.04) mg/dL Glucose 69 L (74-99) mg/dL POC Glucose (mg/dL) (75-99) mg/dL Hemoglobin A1c 7.5 H (4.0-6.0) % 08/18/18 08/18/18 08/18/18 Range/Units 05:40 11:16 16:04 RDW (11.5-15.5) % Chloride (98-107) mmol/L BUN (7-17) mg/dL Creatinine (0.52-1.04) mg/dL Glucose (74-99) mg/dL POC Glucose (mg/dL) 72 L 148 H 207 H (75-99) mg/dL Hemoglobin A1c (4.0-6.0) % 08/18/18 Range/Units 20:42 RDW (11.5-15.5) % Chloride (98-107) mmol/L BUN (7-17) mg/dL Creatinine (0.52-1.04) mg/dL Glucose (74-99) mg/dL POC Glucose (mg/dL) 255 H (75-99) mg/dL Hemoglobin A1c (4.0-6.0) % Microbiology - Last 24 Hours (Table) 08/16/18 16:00 Blood Culture - Preliminary Blood No Growth after 48 hours
--- NOTE | 2018-08-18 23:26 | P.PN ---
Subjective This is a pleasant 68 years old female with past medical history of heart failure, hyperlipidemia, hypertension, type 2 diabetes mellitus, migraine, GERD and Espinoza's esophagus, patient has chronic neck pain and she follow up with Dr. Colunga the neurologist whom she saw about 1 week earlier and one day prior to coming to the hospital. This time she presents because of worsening dyspnea of one week duration associated with cough and tenacious whitish phlegm and no hemoptysis. No chest pain. Patient has moved recently from [place] to live with her son and she has a house in [place]. She went to Dr. Bartlett urgent care who prescribed her some antibiotics , Cipro for her upper respiratory tract infection and UTI as patient also was complaining of from dysuria, however patient did not feel better and she came to emergency room. On admission, Vitas looks stable. However on admission he had low-grade fever 100.2. CBC was unremarkable. Creatinine is elevated at 1.49, baseline 0.8. High lactic acid at 2.5, down to 1.1 which is WNL. Glucose was elevated at 588 on admission. Elevated troponin at 0.05 and 0.04. Influenza is negative. Chest x-ray: No acute process [employer] already evaluated the patient and recommended to start patient on aspirin and statin. No evidence of acute coronary syndrome. Recommended echocardiogram and advised patient for stress test as an outpatient. 08/18/2018 pt is still dyspneic for possible tracheobronchitis , no more fever, she still on ceftriaxone and iv fluids, creatinine is trending up to 1.4. pt is been evaluated pt and they are recommending stress test as outpt .ejection fraction of 60-65%. physical therapy evaluation is appreciated and they recommending pt can be discharged home when she is ready . pt confirm to me she will follow up with her pcp upon discharge . Objective - Vital Signs Vital signs: Vital Signs Temp 98.3 F 08/18/18 20:00 Pulse 77 08/18/18 20:00 Resp 18 08/18/18 20:00 BP 137/72 08/18/18 20:00 Pulse Ox 93 L 08/18/18 20:00 Intake & Output 08/18/18 08/18/18 08/19/18 06:59 18:59 06:59 Intake Total 160 1370 Output Total 325 Balance 160 1045 Weight 90.2 kg Intake: IV 160 0.9 160 Intake, IV Titration 650 Amount Sodium Chloride 0.9% 1, 600 000 ml @ 100 mls/hr IV . Q10H [facility] Rx#:[id number] cefTRIAXone 1 gm In 50 Sodium Chloride 0.9% 50 ml @ 100 mls/hr IVPB Q24H [facility] Rx#:[id number] Oral 720 Output: Urine 325 Other: Voiding Method Toilet Toilet Toilet # Voids 1 - Exam GENERAL: The patient is alert and oriented x3, not in any acute distress. Well developed, well nourished. HEENT: Pupils are round and equally reacting to light. EOMI. No scleral icterus. No conjunctival pallor. Normocephalic, atraumatic. No pharyngeal erythema. No thyromegaly. CARDIOVASCULAR: S1 and S2 present. No murmurs, rubs, or gallops. PULMONARY: Chest is clear to auscultation, no wheezing or crackles. ABDOMEN: Soft, nontender, nondistended, normoactive bowel sounds. No palpable organomegaly. MUSCULOSKELETAL: No joint swelling or deformity. EXTREMITIES: No cyanosis, clubbing, or pedal edema. NEUROLOGICAL: Gross neurological examination did not reveal any focal deficits. SKIN: No rashes. - Labs CBC & Chem 7: 08/18/18 05:19 08/18/18 05:19 Labs: Abnormal Lab Results - Last 24 Hours (Table) 08/18/18 08/18/18 08/18/18 Range/Units 05:19 05:19 05:19 RDW 17.2 H (11.5-15.5) % Chloride 110 H (98-107) mmol/L BUN 36 H (7-17) mg/dL Creatinine 1.42 H (0.52-1.04) mg/dL Glucose 69 L (74-99) mg/dL POC Glucose (mg/dL) (75-99) mg/dL Hemoglobin A1c 7.5 H (4.0-6.0) % 08/18/18 08/18/18 08/18/18 Range/Units 05:40 11:16 16:04 RDW (11.5-15.5) % Chloride (98-107) mmol/L BUN (7-17) mg/dL Creatinine (0.52-1.04) mg/dL Glucose (74-99) mg/dL POC Glucose (mg/dL) 72 L 148 H 207 H (75-99) mg/dL Hemoglobin A1c (4.0-6.0) % 08/18/18 Range/Units 20:42 RDW (11.5-15.5) % Chloride (98-107) mmol/L BUN (7-17) mg/dL Creatinine (0.52-1.04) mg/dL Glucose (74-99) mg/dL POC Glucose (mg/dL) 255 H (75-99) mg/dL Hemoglobin A1c (4.0-6.0) % Microbiology - Last 24 Hours (Table) 08/16/18 16:00 Blood Culture - Preliminary Blood No Growth after 48 hours Assessment and Plan Assessment: Upper respiratory tract infection, with possible acute tracheobronchitis. Elevated troponin, likely due to acute coronary syndrome. Acute kidney injury Elevated lactic acid, resolved Essential hypertension Hyperlipidemia Type 2 diabetes mellitus, uncontrolled with hyperglycemia on admission History of migraine History of GERD and Espinoza's esophagus History of heart failure, not in active tissue. Plan: This is a pleasant 68 years old female who presents with upper respiratory tract infection, elevated troponins are not consistent with ACS. Cardiology evaluation is appreciated. Recommended to add baby aspirin and statin and outpatient stress test. Echocardiogram was ordered. Continue with antibiotic and follow-up culture results. Labs and medication were reviewed.. Continue same treatment. Continue with symptomatic treatment. Resume home medication. Monitor lytes and vitals. DVT and GI prophylaxis. Further recommendations of the clinical course of the patient DVT prophylaxis: Subcutaneous heparin GI Prophylaxis: Pepcid PT/OT: Pending Prognosis is guarded
[2018-08-19] MEDS: SODIUM CHLORIDE 0.9% 1,000 ML IV SCH ×2 (05:20→12:09)
[2018-08-19 05:43] LABS: Glucose,Whole Blood 80 mg/dL (75-99)
[2018-08-19 06:50] LABS: Anisocytosis Slight; Basophils % (A) 1 %; Eosinophils # (A) 0.2 k/uL (0-0.7); Eosinophils % (A) 3 %; HCT 35.7 % (34.0-46.0); HGB 11.4 gm/dL (11.4-16.0); Hypochromasia Slight; Lymphocytes # (A) 3.5 k/uL (1.0-4.8); Lymphocytes % (A) 51 %; MCHC 31.9 g/dL (31.0-37.0); MCV 84.8 fL (80.0-100.0); Mean Platelet Volume 7.3; Monocytes # (A) 0.3 k/uL (0-1.0); Monocytes % (A) 4 %; Neutrophils # (A) 2.7 k/uL (1.3-7.7); Neutrophils % (A) 39 %; Platelet Count 213 k/uL (150-450); RBC 4.21 m/uL (3.80-5.40); RDW 16.9 % (11.5-15.5); WBC 6.9 k/uL (3.8-10.6)
[2018-08-19 07:02] LABS: Calcium 9.5 mg/dL (8.4-10.2); Potassium 4.3 mmol/L (3.5-5.1)
[2018-08-19] MEDS: SYMBICORT 80-4.5 MCG INHALER INHALATION SCH (07:58)
[2018-08-19] MEDS: IPRATROPIUM-ALBUTEROL 3 ML NEB INHALATION SCH ×2 (07:58→11:12)
[2018-08-19] MEDS: ASPIRIN 81 MG PO SCH (08:59)
[2018-08-19] MEDS: METOPROLOL TARTRATE 25 MG TAB PO SCH (08:59)
[2018-08-19] MEDS: busPIRone HCl 5 MG TAB PO SCH (08:59)
[2018-08-19] MEDS: ATORVASTATIN 40 MG TAB PO SCH (08:59)
[2018-08-19] MEDS: PREGABALIN 100 MG CAP PO SCH (08:59)
[2018-08-19] MEDS: FAMOTIDINE 20 MG TAB PO SCH (08:59)
[2018-08-19] MEDS: HEPARIN SODIUM,PORCINE 5,000 UNIT/ML 1 ML VIAL SQ SCH (09:00)
[2018-08-19] MEDS: LISINOPRIL 20 MG TAB PO SCH (09:03)
[2018-08-19] MEDS: metFORMIN 500 MG TAB PO SCH (09:03)
[2018-08-19 12:06] LABS: Glucose,Whole Blood 122 mg/dL (75-99)
[2018-08-19] MEDS ORDERED: GLIMEPIRIDE 0.5 MG TAB PO SCH (12:15)
--- NOTE | 2018-08-19 13:00 | P.PN ---
Subjective Progress Note Date: 08/19/18 This is a 68-year-old female with history of diabetes, hypertension, hyperlipidemia, nonsmoker, chronic pain, GERD, Espinoza's esophagus, bipolar disorder, history of kidney stones, anxiety, depression, short term memory loss , hypothyroidism, PTSD, and prior TIAs. She presents to the hospital on this admission with symptoms of fever, chest congestion and cough of productive yellow sputum, she also states that she had 1 episode of midsternal chest pressure and heaviness lasting seconds. Troponins were drawn in the emergency room which came back to be abnormal and for this reason a cardiology consultation at been requested. EKG on presentation here showed a normal sinus rhythm with incomplete right bundle branch block pattern and evidence of LVH strain pattern. Chest x-ray did not reveal any acute process. I pressure on arrival here 136/80 with a heart rate of 100, 96% on room air, she has been running temperatures, 100.2 100. Blood pressure this morning 119/74 with a heart rate in the 70s. White blood cell count 10.1, hemoglobin 11.7, platelet count 232. Sodium 136, potassium 4.5, BUN 38, creatinine 1.4. Blood glucose on arrival 588, troponins 0.04, 0.05, 0.04. BNP 1000. Influenza A and B are negative. At the time of my examination this morning, patient continues to have productive cough, denies any chest pain at present. 08/18/2018 Patient seen and examined this morning, continues to have productive cough, denies any chest discomfort. Echocardiogram with Doppler study was performed which revealed an ejection fraction of 60-65%. Hemodynamically stable. 08/19/2018 Patient seen and examined this morning, continues to have a productive cough. Blood pressure 127/58, heart rate in the 50s to 60s, 98% on room air. White blood cell count 6.9, hemoglobin 11.4, platelet count 213. Sodium 142, potassium 4.3, BUN 29 and creatinine 1.2. Objective - Vital Signs Vital signs: Vital Signs Temp 98.3 F 08/19/18 11:59 Pulse 55 L 08/19/18 11:59 Resp 20 08/19/18 11:59 BP 160/66 08/19/18 11:59 Pulse Ox 95 08/19/18 11:59 Intake & Output 08/18/18 08/19/1819 18:59 06:59 18:59 Intake Total 1370 Output Total 325 Balance 1045 Weight 91.1 kg Intake: Intake, IV Titration 650 Amount Sodium Chloride 0.9% 1, 600 000 ml @ 100 mls/hr IV . Q10H [facility] Rx#:[id number] cefTRIAXone 1 gm In 50 Sodium Chloride 0.9% 50 ml @ 100 mls/hr IVPB Q24H [facility] Rx#:[id number] Oral 720 Output: Urine 325 Other: Voiding Method Toilet Toilet Toilet # Voids 1 1 - Exam PHYSICAL EXAMINATION: GENERAL: 68-year-old female in no acute distress at the time of my examination HEENT: Head is atraumatic, normocephalic. Pupils equal, round. Sclera anicteric. Conjunctiva are clear. Mucous membranes of the mouth are moist. Neck is supple. There is no elevated jugular venous pressure. No carotid bruit is heard. HEART EXAMINATION: Heart S1, S2 normal. No murmur or gallop heard. CHEST EXAMINATION: Lungs reveal fine wheezing and rhonchi throughout. ABDOMEN: Soft, nontender. Bowel sounds are heard. No organomegaly noted. EXTREMITIES: 2+ peripheral pulses with no evidence of peripheral edema and no calf tenderness noted. NEUROLOGIC patient is awake, alert and oriented 3 . . - Labs CBC & Chem 7: 08/19/18 05:33 08/19/18 05:33 Labs: Abnormal Lab Results - Last 24 Hours (Table) 08/18/18 08/18/18 08/18/18 Range/Units 05: 16:04 20:42 RDW (11.5-15.5) % Chloride (98-107) mmol/L BUN (7-17) mg/dL Creatinine (0.52-1.04) mg/dL Glucose (74-99) mg/dL POC Glucose (mg/dL) 207 H 255 H (75-99) mg/dL Hemoglobin A1c 7.5 H (4.0-6.0) % 08/19/18 08/19/18 08/19/18 Range/Units 05:33 05:33 12:03 RDW 16.9 H (11.5-15.5) % Chloride 109 H (98-107) mmol/L BUN 29 H (7-17) mg/dL Creatinine 1.27 H (0.52-1.04) mg/dL Glucose 72 L (74-99) mg/dL POC Glucose (mg/dL) 122 H (75-99) mg/dL Hemoglobin A1c (4.0-6.0) % Microbiology - Last 24 Hours (Table) 08/16/18 16:00 Blood Culture - Preliminary Blood No Growth after 48 hours Assessment and Plan Plan: Assessment and plan #1 symptoms of chest congestion with associated fever and productive cough, suggestive of possible tracheobronchitis #2 chest pain, atypical for acute coronary syndrome. Troponins 0.04, 0.05, 0.04. Troponin abnormality not consistent with acute coronary syndrome with no significant rise and fall pattern. EKG shows normal sinus rhythm with incomplete right bundle branch block pattern. #3 hypertension #4 diabetes uncontrolled #5 hyperlipidemia #6 anxiety and depression #7 PTSD #8 chronic pain #9 prior TIA #10 family history of premature coronary artery disease Plan From cardiology's perspective, patient may be able to be discharged home. We will make a follow-up appointment in the office post discharge. DNP note has been reviewed, I agree with a documented findings and plan of care. Patient was seen and examined.
[2018-08-19 15:33] VITALS: RESP 16
[2018-08-19 16:19] VITALS: BP 169/72; PULSE 58; TEMP 98.8
[2018-08-19 16:35] LABS: Glucose,Whole Blood 151 mg/dL (75-99)
== END 2018-08-19 17:52 | disposition home or self-care (01) | DRG 202 ==
LOC: EC 14:21 → 3SCARD 18:13
PROVIDERS: ADMIT Internal Medicine; ATTEND Internal Medicine
DX: J20.9 Acute bronchitis, unspecified (principal); N17.9 Acute kidney failure, unspecified; N39.0 Urinary tract infection, site not specified; E87.2 Acidosis; E03.9 Hypothyroidism, unspecified; E11.65 Type 2 diabetes mellitus with hyperglycemia; E78.5 Hyperlipidemia, unspecified; F31.9 Bipolar disorder, unspecified; F41.0 Panic disorder [episodic paroxysmal anxiety]; F43.10 Post-traumatic stress disorder, unspecified; G89.29 Other chronic pain; M54.2 Cervicalgia; R74.8 Abnormal levels of other serum enzymes; I11.0 Hypertensive heart disease with heart failure; I45.10 Unspecified right bundle-branch block; I50.9 Heart failure, unspecified; K21.9 Gastro-esophageal reflux disease without esophagitis; K22.70 Barrett's esophagus without dysplasia; Z79.4 Long term (current) use of insulin; Z79.899 Other long term (current) drug therapy; Z80.7 Family history of other malignant neoplasms of lymphoid, hematopoietic and related tissues; Z82.49 Family history of ischemic heart disease and other diseases of the circulatory system; Z86.73 Personal history of transient ischemic attack (TIA), and cerebral infarction without residual deficits; Z87.442 Personal history of urinary calculi; Z90.711 Acquired absence of uterus with remaining cervical stump; Z96.60 Presence of unspecified orthopedic joint implant; Z88.5 Allergy status to narcotic agent; Z88.2 Allergy status to sulfonamides; Z80.42 Family history of malignant neoplasm of prostate; G43.909 Migraine, unspecified, not intractable, without status migrainosus; R07.9 Chest pain, unspecified; Z82.3 Family history of stroke
CPT/HCPCS: 36415; 71046; 80048; 80053; 80061; 81001; 82550; 82553; 83036; 83605; 83880; 84484; 85025; 85610; 85730; 87040; 87502; 93005; 93306; 94640; 94760; 96365; 96366; 96372; 96376; 99284

== ENCOUNTER → 2018-09-29 | Outpatient (CLI) | payer MEDICARE ==
[2018-09-29 10:41] LABS: Basophils % (A) 1 %; Eosinophils # (A) 0.2 k/uL (0-0.7); Eosinophils % (A) 4 %; HCT 37.9 % (34.0-46.0); HGB 11.8 gm/dL (11.4-16.0); Hypochromasia Slight; Lymphocytes # (A) 2.1 k/uL (1.0-4.8); Lymphocytes % (A) 45 %; MCH 26.4 pg (25.0-35.0); MCHC 31.1 g/dL (31.0-37.0); MCV 84.9 fL (80.0-100.0); Mean Platelet Volume 8.8; Monocytes # (A) 0.2 k/uL (0-1.0); Monocytes % (A) 4 %; Neutrophils # (A) 2.1 k/uL (1.3-7.7); Neutrophils % (A) 46 %; Platelet Count 195 k/uL (150-450); RBC 4.47 m/uL (3.80-5.40); RDW 15.3 % (11.5-15.5); WBC 4.7 k/uL (3.8-10.6)
[2018-09-29 12:11] LABS: Erythrocyte Sedimentation Rate 8 mm/hr (0-20)
[2018-09-29 17:53] LABS: ALT 18 U/L (8-44); AST 44 U/L (13-35); Albumin/Globulin Ratio 2.59 (1.60-3.17); C Reactive Protein <0.4 mg/dL (0.0-0.8); Calcium 9.1 mg/dL (8.7-10.3); Carbon Dioxide 26.2 mmol/L (21.6-31.8); Chloride 105 mmol/L (96-109); Cholesterol 147 mg/dL (0-200); Creatine Kinase 104 U/L (26-186); Globulin 1.7 g/dL (1.6-3.3); Glucose 151 mg/dL (70-110); LDL Cholesterol,Calculated 69.2 mg/dL (0.0-131.0); Magnesium 1.3 mg/dL (1.5-2.4); Potassium 4.8 mmol/L (3.5-5.5); Sodium 141 mmol/L (135-145); Total Bilirubin 0.3 mg/dL (0.2-1.2); Total Protein 6.1 g/dL (6.2-8.2)
[2018-09-29 18:09] LABS: Vitamin D 25 Hydroxy 29.5 ng/mL (30.0-100.0)
[2018-09-29 18:16] LABS: Hemoglobin A1C 7.4 % (4.0-6.0)
[2018-09-29 18:20] LABS: Folate, Serum 15.3 ng/mL
[2018-09-30 12:28] LABS: Alkaline Phosphatase 15
[2018-09-30 13:23] LABS: Vit B1(Thiamine) 65 ug/L (38-122)
[2018-10-01 07:26] LABS: Vitamin E (Alpha Tocopherol) 1775 ug/dL (500-1800)
== END | disposition home or self-care (01) ==
LOC: LABWHC1 08:59
PROVIDERS: ATTEND Psychiatry & Neurology Pain Medicine
DX: E78.2 Mixed hyperlipidemia (principal); G89.4 Chronic pain syndrome; M79.7 Fibromyalgia; Z79.899 Other long term (current) drug therapy
CPT/HCPCS: 36415; 80053; 80061; 82306; 82550; 82607; 82746; 83036; 83519; 83735; 84207; 84425; 84446; 84590; 84591; 84597; 85025; 85652; 86140

== ENCOUNTER 2018-10-07 20:05 | Observation (INO) | payer MEDICARE ==
[2018-10-07] MEDS ORDERED: LORazepam 2 MG/ML INJ IV STA (20:47)
--- NOTE | 2018-10-07 20:47 | ED ---
Chest Pain HPI - General Chief Complaint: Chest Pain Stated Complaint: Chest Pain Hx Cardiac Issues Time Seen by Provider: 10/07/18 20:23 Source: family, RN notes reviewed, old records reviewed Mode of arrival: ambulatory Limitations: no limitations - History of Present Illness Initial Comments: This is a 68-year-old female the ER for evaluation, patient presents today for evaluation regarding chest pain left-sided chest pain shoulder pain shortness of breath history of COPD recent hospital admission with elevated troponin. Patient was scheduled to have outpatient stress test did not make that appointment, chest pain is been persistent. No fevers but does have shortness of breath again MD Complaint: chest pain -: days(s) Onset: during rest, during exertion Pain Location: left chest Pain Radiation: LUE Severity: moderate Severity scale (1-10): 4 Quality: aching Consistency: constant Improves With: nothing Worsens With: exertion Anginal Symptoms: dyspnea Treatments Prior to Arrival: none - Related Data Home Medications Medication Instructions Recorded Confirmed Lisinopril [Prinivil] 40 mg PO DAILY 02/12/15 10/07/18 SUMAtriptan SUCCINATE [Imitrex] 100 mg PO BID 02/12/15 10/07/18 Cyanocobalamin [Vitamin B-12 1,000 mcg SQ Q30D 02/04/16 10/07/18 Injection] Dexlansoprazole [Dexilant] 60 mg PO DAILY 02/04/16 10/07/18 Fluticasone Nasal [place] [Flonase 2 spray EA NOSTRIL HS 02/04/16 10/07/18 Nasal [place]] Fluticasone/Salmeterol [Advair 1 puff INHALATION RT-BID 02/04/16 10/07/18 100-50 Diskus] Atorvastatin [Lipitor] 80 mg PO DAILY 08/16/18 10/07/18 HYDROcodone/APAP 10-325MG [[place] 1 tab PO DAILY PRN 08/16/18 10/07/18 10-325] Insulin Glargine,Hum.rec.anlog 25 unit SQ HS 08/16/18 10/07/18 [Lantus Solostar] Pregabalin [Lyrica] 100 mg PO BID 08/16/18 10/07/18 Ranitidine HCl 300 mg PO DAILY 08/16/18 10/07/18 busPIRone HCL 15 mg PO BID 08/16/18 10/07/18 fentaNYL 50MCG/HR PATCH [Duragesic 1 patch TRANSDERM Q72H 08/16/18 10/07/18 50MCG/HR] Ergocalciferol (Vitamin D2) 50,000 unit PO WE 10/07/18 10/07/18 [Vitamin D2] Fenofibrate [Lofibra] 160 mg PO DAILY 10/07/18 10/07/18 PARoxetine [Paxil] 40 mg PO HS 10/07/18 10/07/18 Previous Rx's Medication Instructions Recorded Albuterol Inhaler [Ventolin Hfa 1 - 2 puff INHALATION RT-Q6H PRN 08/19/18 Inhaler] #1 inhaler Glimepiride [Amaryl] 1 mg PO AC-BRKFST #10 tab 08/19/18 Metoprolol Tartrate [Lopressor] 25 mg PO BID #60 tab 08/19/18 Aspirin EC [Ecotrin Low Dose] 81 mg PO DAILY #0 10/08/18 Orphenadrine Citrate [Orphenadrine 100 mg PO BID 3 Days #6 tablet.er 10/08/18 Citrate ER] Allergies Allergy/AdvReac Type Severity Reaction Status Date / Time codeine AdvReac Nausea Verified 10/07/18 22:07 Sulfa (Sulfonamide AdvReac Nausea Verified 10/07/18 22:07 Antibiotics) Review of Systems ROS Statement: Those systems with pertinent positive or pertinent negative responses have been documented in the HPI. ROS Other: All systems not noted in ROS Statement are negative. EKG Findings - EKG Comments: EKG Findings:: Chest x-ray shows sinus bradycardia at 53, ND 166, QRS 96, QTc 414 Past Medical History Past Medical History: Heart Failure, GERD/Reflux, Hyperlipidemia, Hypertension, Thyroid Disorder Additional Past Medical History / Comment(s): migraine, barretts esophagus History of Any Multi-Drug Resistant Organisms: None Reported Past Surgical History: Hernia Repair, Joint Replacement, Tonsillectomy Additional Past Surgical History / Comment(s): Partial hysterectomy Past Anesthesia/Blood Transfusion Reactions: No Reported Reaction Past Psychological History: Anxiety, Depression, Panic Disorder Smoking Status: Never smoker Past Alcohol Use History: None Reported Past Drug Use History: None Reported - Past Family History Mother Family Medical History: CVA/TIA, Myocardial Infarction (ME) Father Family Medical History: Cancer, Prostate Disorder Additional Family Medical History / Comment(s): prostate ca and lymphoma, bone ca General Exam Limitations: no limitations General appearance: alert, anxious Head exam: Present: atraumatic, normocephalic, normal inspection Eye exam: Present: normal appearance, PERRL, EOMI. Absent: scleral icterus, conjunctival injection, periorbital swelling ENT exam: Present: normal exam, mucous membranes moist Neck exam: Present: normal inspection. Absent: tenderness, meningismus, lymphadenopathy Respiratory exam: Present: normal lung sounds bilaterally. Absent: respiratory distress, wheezes, rales, rhonchi, stridor Cardiovascular Exam: Present: regular rate, normal rhythm, normal heart sounds. Absent: systolic murmur, diastolic murmur, rubs, gallop, clicks GI/Abdominal exam: Present: soft, normal bowel sounds. Absent: distended, tenderness, guarding, rebound, rigid Extremities exam: Present: normal inspection, full ROM, normal capillary refill. Absent: tenderness, pedal edema, joint swelling, calf tenderness Back exam: Present: normal inspection Neurological exam: Present: alert, oriented X3, CN II-XII intact Psychiatric exam: Present: normal affect, normal mood Skin exam: Present: warm, dry, intact, normal color. Absent: rash Course Vital Signs 10/07/18 10/07/18 10/07/18 20:15 21:37 23:03 Temperature 97.8 F Pulse Rate 62 52 L 57 L Respiratory 18 16 16 Rate Blood Pressure 152/86 155/73 O2 Sat by Pulse 97 100 97 Oximetry 10/07/18 23:05 Temperature Pulse Rate Respiratory Rate Blood Pressure 171/63 O2 Sat by Pulse Oximetry - Reevaluation(s) Reevaluation #1: Patient remains a chest pain, mildly anxious. Chest Pain MDM - MDM 68 female the ER for chest pain chest pain shoulder pain recent hospital admission with chest pain and elevated troponin. Patient be admitted for cardiac observation Disposition Clinical Impression: Chest pain, Atypical chest pain Disposition: ADMITTED IP TO THIS HOSP Condition: Undetermined Is patient prescribed a controlled substance at d/c from ED?: No
[2018-10-07 21:24] LABS: ALT 19 U/L (9-52); AST 41 U/L (14-36); Albumin 4.1 g/dL (3.5-5.0); Alkaline Phosphatase <20 U/L (38-126); Anion Gap 10 mmol/L; Blood Urea Nitrogen 19 mg/dL (7-17); Carbon Dioxide 26 mmol/L (22-30); Chloride 106 mmol/L (98-107); Glucose 74 mg/dL (74-99); Lipase 77 U/L (23-300); Magnesium 1.2 mg/dL (1.6-2.3); Potassium 4.1 mmol/L (3.5-5.1); Sodium 142 mmol/L (137-145); Total Bilirubin 0.7 mg/dL (0.2-1.3); Total Protein 6.8 g/dL (6.3-8.2)
--- NOTE | 2018-10-07 21:47 | XR ---
EXAMINATION: XR chest 2V DATE AND TIME: 10/07/2018 9:18 PM CLINICAL INDICATION: PH[facility]; Chest Pain TECHNIQUE: Departmental protocol COMPARISON: 08/16/2018 FINDINGS: The diaphragms are elevated, consistent with relatively low lung inflation compared with the prior st udy. Given this factor, lungs are clear. The pleural spaces are negative. The cardiac silhouette is ordered enlarged. The remainder of the mediastinal silhouette is unremarkable. The skeletal structures and soft tissues are negative for acute findings. IMPRESSION: NO DEFINITE ACUTE PROCESS.
--- NOTE | 2018-10-07 21:49 | XR ---
PROCEDURE: XR shoulder complete LT - 3V DATE AND TIME: 10/07/2018 9:18 PM CLINICAL INDICATION: PHH; Pain TECHNIQUE: Department protocol COMPARISON: None FINDINGS: There is no fracture or malalignment. Moderately-prominent osteophytic spur osteoarthritis changes are seen at the acromioclavicular joint. Mild glenohumeral joint osteoarthritis changes are noted. The soft tissues are unremarkable. IMPRESSION: NO ACUTE PROCESS.
[2018-10-07] MEDS ORDERED: MAGNESIUM SULFATE-D5W PMX 1 GM in DEXTROSE/WATER 1 100ML.BAG IVPB ONE (22:29)
[2018-10-07] MEDS ORDERED: MAGNESIUM OXIDE 400 MG TAB PO STA (22:29)
[2018-10-07] MEDS ORDERED: DEXAMETHASONE SOD PHOSPHATE 10 MG/ML 1 ML VIAL IV STA (22:29)
[2018-10-07] MEDS ORDERED: IPRATROPIUM-ALBUTEROL 3 ML NEB INHALATION STA (22:29)
[2018-10-07 22:31] LABS: Partial Thromboplastin Time 18.2 sec (22.0-30.0)
[2018-10-07] MEDS ORDERED: LORazepam 2 MG/ML INJ IV PRN (22:57)
[2018-10-07] MEDS ORDERED: NITROGLYCERIN SL TABS 0.4 MG TAB SUBLINGUAL PRN (22:57)
[2018-10-07] MEDS ORDERED: ASPIRIN 81 MG PO STA ×2 (22:57→23:31)
[2018-10-07] MEDS ORDERED: SODIUM CHLORIDE 0.9% 1,000 ML IV SCH (23:00)
[2018-10-07 23:07] LABS: Basophils % (A) 0 %; Eosinophils # (A) 0.3 k/uL (0-0.7); Eosinophils % (A) 5 %; HCT 34.9 % (34.0-46.0); HGB 11.7 gm/dL (11.4-16.0); Lymphocytes % (A) 37 %; MCH 27.1 pg (25.0-35.0); MCHC 33.6 g/dL (31.0-37.0); MCV 80.6 fL (80.0-100.0); Mean Platelet Volume 8.1; Monocytes # (A) 0.2 k/uL (0-1.0); Monocytes % (A) 4 %; Neutrophils # (A) 2.8 k/uL (1.3-7.7); Neutrophils % (A) 52 %; Platelet Count 213 k/uL (150-450); RBC 4.33 m/uL (3.80-5.40); RDW 15.3 % (11.5-15.5); WBC 5.3 k/uL (3.8-10.6)
[2018-10-08 01:29] VITALS: RESP 18
[2018-10-08 04:11] LABS: Cholesterol 147 mg/dL (<200); HDL Cholesterol 36 mg/dL (40-60); LDL Cholesterol,Calculated 68 mg/dL (0-99); Triglycerides 217 mg/dL (<150)
[2018-10-08 06:37] LABS: Glucose,Whole Blood 268 mg/dL (75-99)
--- NOTE | 2018-10-08 07:21 | P.CRDCN ---
History of Present Illness Consult date: 10/08/18 History of present illness: This is a 68-year-old female with history of hypertension, diabetes, hyperlipidemia and chronic pain syndrome and also Espinoza's esophagus. Patient was in this hospital in August of this year with what looks like bronchitis with a of mildly elevated troponin which were not suggestive of acute coronary syndrome. Her echocardiogram at that time showed normal LV function. He and patient was discharged in a stable condition and advised to have an outpatient stress test. She was seen by Dr. Tejada and was scheduled to have a stress test but patient did not keep her appointment. Patient mainly came to the hospital this time with one week of not feeling well and some sickness to the stomach. She claims that she had some vague pains and mostly pains in the left shoulder area. She is Being followed by the pain clinic and scheduled to have some injections for the pain in the left shoulder area for possible neuropathy. This morning patient is stable. Her EKGs did not reveal any acute changes. Her cardiac enzymes are so far negative. From cardiac standpoint, patient could be discharged home. Patient will have outpatient stress test as scheduled by cardiology office. Review of Systems As per the chart Past Medical History Past Medical History: Heart Failure, GERD/Reflux, Hyperlipidemia, Hypertension, Thyroid Disorder Additional Past Medical History / Comment(s): migraine, barretts esophagus History of Any Multi-Drug Resistant Organisms: None Reported Past Surgical History: Hernia Repair, Joint Replacement, Tonsillectomy Additional Past Surgical History / Comment(s): Partial hysterectomy Past Anesthesia/Blood Transfusion Reactions: No Reported Reaction Past Psychological History: Anxiety, Depression, Panic Disorder Smoking Status: Never smoker Past Alcohol Use History: None Reported Past Drug Use History: None Reported - Past Family History Mother Family Medical History: CVA/TIA, Myocardial Infarction ([place]) Father Family Medical History: Cancer, Prostate Disorder Additional Family Medical History / Comment(s): prostate ca and lymphoma, bone ca Medications and Allergies Home Medications Medication Instructions Recorded Confirmed Type Lisinopril [Prinivil] 40 mg PO DAILY 02/12/15 10/07/18 History SUMAtriptan SUCCINATE [Imitrex] 100 mg PO BID 02/12/15 10/07/18 History Cyanocobalamin [Vitamin B-12 1,000 mcg SQ Q30D 02/04/16 10/07/18 History Injection] Dexlansoprazole [Dexilant] 60 mg PO DAILY 02/04/16 10/07/18 History Fluticasone Nasal [place] [Flonase 2 spray EA NOSTRIL HS 02/04/16 10/07/18 History Nasal [place]] Fluticasone/Salmeterol [Advair 1 puff INHALATION RT-BID 02/04/16 10/07/18 History 100-50 Diskus] Atorvastatin [Lipitor] 80 mg PO DAILY 08/16/18 10/07/18 History HYDROcodone/APAP 10-325MG [[place] 1 tab PO DAILY PRN 08/16/18 10/07/18 History 10-325] Insulin Glargine,Hum.rec.anlog 25 unit SQ HS 08/16/18 10/07/18 History [Lantus Solostar] Orphenadrine Citrate [Orphenadrine 100 mg PO BID 08/16/18 10/07/18 History Citrate ER] Pregabalin [Lyrica] 100 mg PO BID 08/16/18 10/07/18 History Ranitidine HCl 300 mg PO DAILY 08/16/18 10/07/18 History busPIRone HCL 15 mg PO BID 08/16/18 10/07/18 History fentaNYL 50MCG/HR PATCH [Duragesic 1 patch TRANSDERM Q72H 08/16/18 10/07/18 History 50MCG/HR] Albuterol Inhaler [Ventolin Hfa 1 - 2 puff INHALATION RT-Q6H PRN 08/19/18 10/07/18 Rx Inhaler] #1 inhaler Glimepiride [Amaryl] 1 mg PO AC-BRKFST #10 tab 08/19/18 10/07/18 Rx Metoprolol Tartrate [Lopressor] 25 mg PO BID #60 tab 08/19/18 10/07/18 Rx Aspirin EC [Ecotrin Low Dose] 81 mg PO BID 10/07/18 10/07/18 History Ergocalciferol (Vitamin D2) 50,000 unit PO WE 10/07/18 10/07/18 History [Vitamin D2] Fenofibrate [Lofibra] 160 mg PO DAILY 10/07/18 10/07/18 History PARoxetine [Paxil] 40 mg PO HS 10/07/18 10/07/18 History Allergies Allergy/AdvReac Type Severity Reaction Status Date / Time codeine AdvReac Nausea Verified 10/07/18 22:07 Sulfa (Sulfonamide AdvReac Nausea Verified 10/07/18 22:07 Antibiotics) Physical Exam Vitals: Vital Signs Temp Pulse Pulse Resp BP BP Pulse Ox 10/08/18 02:33 18 10/08/18 01:27 98.6 F 61 18 146/88 96 10/08/18 01:05 61 14 154/75 96 10/07/18 23:05 171/63 10/07/18 23:03 57 L 16 97 10/07/18 21:37 52 L 16 155/73 100 10/07/18 20:15 97.8 F 62 18 152/86 97 Intake and Output 10/07/18 10/08/18 10/08/18 22:59 06:59 14:59 Other: # Voids 1 Weight 92.079 kg GENERAL EXAM: Patient is alert and oriented and doesn't appear to be in any acute distress HEENT: Normocephalic. Normal reaction of pupils, equal size, normal range of extraocular motion. No erythema or exudates in the throat. NECK: No masses, no nuchal rigidity. CHEST: No chest wall deformity. LUNGS: Equal air entry with no crackles or wheeze. HEART: S1 and S2 normal with no audible mumurs or gallops. Regular rhythm, femorals equal on both sides.. ABDOMEN: No hepatosplenomegaly, normal bowel sounds, no guarding or rigidity. SKIN: No rashes CENTRAL NERVOUS SYSTEM: No focal deficits. EXTREMITIES: No cyanosis, clubbing or edema. Results 10/07/18 22:47 10/07/18 21:01 Cardiac Enzymes 10/07/18 10/07/18 10/07/18 Range/Units 21:01 21:01 23:59 AST 41 H (14-36) U/L Troponin I <0.012 <0.012 (0.000-0.034) ng/mL Coagulation 10/07/18 Range/Units 21:01 PT 11.0 (9.0-12.0) sec APTT 18.2 L (22.0-30.0) sec Lipids 10/08/18 Range/Units 03:00 Triglycerides 217 H (<150) mg/dL Cholesterol 147 (<200) mg/dL HDL Cholesterol 36 L (40-60) mg/dL CBC 10/07/18 Range/Units 22:47 WBC 5.3 (3.8-10.6) k/uL RBC 4.33 (3.80-5.40) m/uL Hgb 11.7 (11.4-16.0) gm/dL Hct 34.9 (34.0-46.0) % Plt Count 213 (150-450) k/uL Comprehensive Metabolic Panel 10/07/18 Range/Units 21:01 Sodium 142 (137-145) mmol/L Potassium 4.1 (3.5-5.1) mmol/L Chloride 106 (98-107) mmol/L Carbon Dioxide 26 (22-30) mmol/L BUN 19 H (7-17) mg/dL Creatinine 1.05 H (0.52-1.04) mg/dL Glucose 74 (74-99) mg/dL Calcium 10.0 (8.4-10.2) mg/dL AST 41 H (14-36) U/L ALT 19 (9-52) U/L Alkaline Phosphatase <20 L (38-126) U/L Total Protein 6.8 (6.3-8.2) g/dL Albumin 4.1 (3.5-5.0) g/dL Current Medications Generic Name Dose Route Start Last Admin Trade Name Freq PRN Reason Stop Dose Admin Aspirin 325 mg 10/08/18 09:00 Aspirin PO DAILY [place] Atorvastatin Calcium 80 mg 10/08/18 09:00 Lipitor PO DAILY [place] Sodium Chloride 1,000 mls @ 100 mls/hr 10/07/18 23:00 10/07/18 23:37 Saline 0.9% IV 100 mls/hr .Q10H [place] Administration Lorazepam 1 mg 10/07/18 22:57 10/08/18 01:39 Ativan IV 1 mg Q4HR PRN Administration Anxiety Nitroglycerin 0.4 mg 10/07/18 22:57 Nitrostat SUBLINGUAL Q5M PRN Chest Pain Intake and Output 10/07/18 10/08/18 10/08/18 22:59 06:59 14:59 Other: # Voids 1 Weight 92.079 kg 10/07/18 22:47 10/07/18 21:01 EKG Interpretations (text) Sinus rhythm with incomplete right bundle, nonspecific ST-T changes Assessment and Plan (1) Essential hypertension Current Visit: Yes Status: Acute Code(s): I10 - ESSENTIAL (PRIMARY) HYPERTENSION SNOMED Code(s): 55013837 (2) Atypical chest pain Current Visit: Yes Status: Acute Code(s): R07.89 - OTHER CHEST PAIN SNOMED Code(s): 166594540 (3) Hypercholesterolemia Current Visit: Yes Status: Acute Code(s): E78.00 - PURE HYPERCHOLESTER OLEMIA, UNSPECIFIED SNOMED Code(s): 10814027 Plan: Patient is admitted mainly with nausea and not feeling well. Complaining of some atypical chest pain and shoulder pains. EKGs and cardiac enzymes are negative. Echocardiogram from August showed normal LV function. Patient could be discharged home. Patient will have outpatient stress test as scheduled by cardiology office.
[2018-10-08] MEDS ORDERED: ASPIRIN 325 MG TAB PO SCH (09:00)
[2018-10-08] MEDS ORDERED: ATORVASTATIN 80 MG TAB PO SCH (09:00)
[2018-10-08] MEDS ORDERED: ONDANSETRON 4 MG/2 ML VIAL IVP PRN (09:42)
[2018-10-08] MEDS ORDERED: GLIMEPIRIDE 1 MG TAB PO SCH (09:45)
[2018-10-08] MEDS ORDERED: SUMAtriptan SUCCINATE 50 MG TAB PO PRN (09:45)
[2018-10-08] MEDS ORDERED: busPIRone HCl 5 MG TAB PO SCH (11:30)
[2018-10-08] MEDS ORDERED: PANTOPRAZOLE 40 MG TABLET PO SCH (11:30)
[2018-10-08] MEDS ORDERED: PREGABALIN 100 MG CAP PO SCH (11:30)
[2018-10-08 11:46] LABS: Glucose,Whole Blood 277 mg/dL (75-99)
[2018-10-08 11:47] VITALS: BP 136/68; PULSE 63; TEMP 97.7
--- NOTE | 2018-10-08 11:53 | P.HPIM ---
History of Present Illness H&P Date: 10/08/18 Chief Complaint: Chest pain Patient is a 68-year-old female with known history of anxiety/depression and panic disorder, hypertension, diabetes type 2, CHF possible diastolic dysfunction hypertriglyceridemia, migraine headaches, fibromyalgia and chronic neck pain and back pain on follow-up with pain clinic, Barretts esophagus came to ER with the complaints of chest pain and discomfort and tightness which has been on and off for the past 1 week. Patient does have a history of Espionza's esophagus. Patient is on PPI and his 2 blockers for that. Patient is also complaining of muscle pains in the left hand and also generalized body soreness and sweating. Patient was previously on thyroid medications but postoperative year ago. Patient follows with pain clinic and Dr. Colunga for her neck pain and back pain. Patient is also using fentanyl patch and [place] tens at home. Patient is scheduled to have injections to her back and neck and shoulder for possible neuropathy. Patient currently denied any complaints of chest pain. Denied any radiation of the pain. Patient does have nausea and epigastric pain mainly. No fever no chills. Denied any recent illnesses. No recent travel. EKG showed normal sinus rhythm . sinus bradycardia. Chest x-ray negative Troponin 3 negative. Magnesium was 1.2 on admission Previous echocardiogram showed normal ejection fraction sometime August 2018. Review of Systems Constitutional: Patient denies any fever or chills . No generalized weakness or weight loss. Generalized body aches. Abdomen: Patient does have nausea and epigastric abdominal pain. No vomiting. No leg swelling. No diarrhea.. Cardiovascular: Patient does have chest discomfort. No shortness of breath. No palpitations. No leg swelling.. Respiratory: patient denied any cough is from production. No shortness of breath Neurologic: Patient denied any numbness or tingling headache. Musculoskeletal: Patient denies any complaints of joint swelling or deformity. Skin: Negative Psychiatric: Negative Endocrine: Does have sweating. No loss or weight gain.. Genitourinary: No dysuria or hematuria. All other 14 point ROS negative except the above Past Medical History Past Medical History: Heart Failure, GERD/Reflux, Hyperlipidemia, Hypertension, Thyroid Disorder Additional Past Medical History / Comment(s): migraine, barretts esophagus History of Any Multi-Drug Resistant Organisms: None Reported Past Surgical History: Hernia Repair, Joint Replacement, Tonsillectomy Additional Past Surgical History / Comment(s): Partial hysterectomy Past Anesthesia/Blood Transfusion Reactions: No Reported Reaction Past Psychological History: Anxiety, Depression, Panic Disorder Smoking Status: Never smoker Past Alcohol Use History: None Reported Past Drug Use History: None Reported - Past Family History Mother Family Medical History: CVA/TIA, Myocardial Infarction ([place]) Father Family Medical History: Cancer, Prostate Disorder Additional Family Medical History / Comment(s): prostate ca and lymphoma, bone ca Medications and Allergies Home Medications Medication Instructions Recorded Confirmed Type Lisinopril [Prinivil] 40 mg PO DAILY 02/12/15 10/07/18 History SUMAtriptan SUCCINATE [Imitrex] 100 mg PO BID 02/12/15 10/07/18 History Cyanocobalamin [Vitamin B-12 1,000 mcg SQ Q30D 02/04/16 10/07/18 History Injection] Dexlansoprazole [Dexilant] 60 mg PO DAILY 02/04/16 10/07/18 History Fluticasone Nasal [place] [Flonase 2 spray EA NOSTRIL HS 02/04/16 10/07/18 History Nasal [place]] Fluticasone/Salmeterol [Advair 1 puff INHALATION RT-BID 02/04/16 10/07/18 History 100-50 Diskus] Atorvastatin [Lipitor] 80 mg PO DAILY 08/16/18 10/07/18 History HYDROcodone/APAP 10-325MG [[place] 1 tab PO DAILY PRN 08/16/18 10/07/18 History 10-325] Insulin Glargine,Hum.rec.anlog 25 unit SQ HS 08/16/18 10/07/18 History [Lantus Solostar] Pregabalin [Lyrica] 100 mg PO BID 08/16/18 10/07/18 History Ranitidine HCl 300 mg PO DAILY 08/16/18 10/07/18 History busPIRone HCL 15 mg PO BID 08/16/18 10/07/18 History fentaNYL 50MCG/HR PATCH [Duragesic 1 patch TRANSDERM Q72H 08/16/18 10/07/18 History 50MCG/HR] Albuterol Inhaler [Ventolin Hfa 1 - 2 puff INHALATION RT-Q6H PRN 08/19/18 10/07/18 Rx Inhaler] #1 inhaler Glimepiride [Amaryl] 1 mg PO AC-BRKFST #10 tab 08/19/18 10/07/18 Rx Metoprolol Tartrate [Lopressor] 25 mg PO BID #60 tab 08/19/18 10/07/18 Rx Aspirin EC [Ecotrin Low Dose] 81 mg PO BID 10/07/18 10/07/18 History Ergocalciferol (Vitamin D2) 50,000 unit PO WE 10/07/18 10/07/18 History [Vitamin D2] Fenofibrate [Lofibra] 160 mg PO DAILY 10/07/18 10/07/18 History PARoxetine [Paxil] 40 mg PO HS 10/07/18 10/07/18 History Orphenadrine Citrate [Orphenadrine 100 mg PO BID 3 Days #6 tablet.er 10/08/18 Rx Citrate ER] Allergies Allergy/AdvReac Type Severity Reaction Status Date / Time codeine AdvReac Nausea Verified 10/07/18 22:07 Sulfa (Sulfonamide AdvReac Nausea Verified 10/07/18 22:07 Antibiotics) Physical Exam Vitals: Vital Signs Temp Pulse Pulse Resp BP BP Pulse Ox 10/08/18 08:00 64 18 10/08/18 07:00 98.6 F 64 18 146/77 97 10/08/18 02:33 18 10/08/18 01:27 98.6 F 61 18 146/88 96 10/08/18 01:05 61 14 154/75 96 10/07/18 23:05 171/63 10/07/18 23:03 57 L 16 97 10/07/18 21:37 52 L 16 155/73 100 10/07/18 20:15 97.8 F 62 18 152/86 97 Intake and Output 10/07/18 10/08/18 10/08/18 22:59 06:59 14:59 Other: Voiding Method Toilet # Voids 1 Weight 92.079 kg PHYSICAL EXAMINATION: Patient is lying in the bed comfortably, no acute distress, awake alert and oriented.. HEENT: Normocephalic. Neck is supple. Pupils reactive. Nostrils clear. Oral cavity is moist. Ears reveal no drainage. Neck reveals no JVD, carotid bruits, or thyromegaly. CHEST EXAMINATION: Trachea is central. Symmetrical expansion. Lung cervantes clear to auscultation and percussion. CARDIAC: Normal S1, S2 with no gallops. No murmurs ABDOMEN: Soft. Bowel sounds normal. No organomegaly. No abdominal bruits. Extremities: reveal no edema. No clubbing or cyanosis Neurologically awake, alert, oriented x3 with well-coordinated movements. No focal deficits noted Skin: No rash or skin lesions. Psychiatric: Coperative. Nonsuicidal Musculoskeletal: No joint swelling or deformity. Normal range of motion. Results CBC & Chem 7: 10/07/18 22:47 10/07/18 21:01 Labs: Abnormal Lab Results - Last 24 Hours (Table) 10/07/18 10/07/18 10/08/18 Range/Units 21:01 21: 03:00 APTT 18.2 L (22.0-30.0) sec BUN 19 H (7-17) mg/dL Creatinine 1.05 H (0.52-1.04) mg/dL POC Glucose (mg/dL) (75-99) mg/dL Magnesium 1.2 L (1.6-2.3) mg/dL AST 41 H (14-36) U/L Alkaline Phosphatase <20 L (38-126) U/L Triglycerides 217 H (<150) mg/dL HDL Cholesterol 36 L (40-60) mg/dL 10/08/18 Range/Units 06:35 APTT (22.0-30.0) sec BUN (7-17) mg/dL Creatinine (0.52-1.04) mg/dL POC Glucose (mg/dL) 268 H (75-99) mg/dL Magnesium (1.6-2.3) mg/dL AST (14-36) U/L Alkaline Phosphatase (38-126) U/L Triglycerides (<150) mg/dL HDL Cholesterol (40-60) mg/dL Thrombosis Risk Factor Assmnt - DVT/VTE Prophylaxis DVT/VTE Prophylaxis: Pharmacologic Prophylaxis ordered - Choose All That Apply Each Risk Factor Represents 2 Points: Age 61-74 years Thrombosis Risk Factor Assessment Total Risk Factor Score: 2 Thrombosis Risk Factor Assessment Level: Low Risk Assessment and Plan Assessment: Atypical chest pain. Ruled out acute coronary syndrome. Chest discomfort seems to be more likely due to her gastritis and Espinoza's esophagus. Cardiac workup has been negative. Hypertension Diabetes type 2 insulin-dependent Chronic back pain and pain and shoulder pain mainly left. On follow up in clinic and neurology and is scheduled for intra-articular injections. History of hypothyroidism Hyperlipidemia and hypertriglyceridemia. Anxiety depression and panic disorder. Polypharmacy Chronic pain syndrome. fibromyalgia Espinoza's esophagus DVT prophylaxis with heparin subcu plan: Patient is on-year-old female admitted to hospital for chest discomfort for symptoms most likely is related to gastric etiology with Espinoza's esophagus history and polypharmacy. Cardiac workup has been negative currently. Recent echocardiogram showed normal ejection fraction. We will check a TSH and free T4 level. Patient was on thyroid medications and her were discontinued about a year ago. Continue with symptomatic management for nausea. Further recommendations based on the clinical course. Time with Patient: Greater than 30
[2018-10-08] MEDS ORDERED: INSULIN ASPART (NovoLOG) 100 UNIT/ML VIAL SQ SCH (12:30)
[2018-10-08] MEDS ORDERED: SYMBICORT 80-4.5 MCG INHALER INHALATION SCH (20:00)
[2018-10-08] MEDS ORDERED: METOPROLOL TARTRATE 25 MG TAB PO SCH (21:00)
[2018-10-08] MEDS ORDERED: FLUTICASONE 50MCG/SPRAY NASAL 16GM EA NOSTRIL SCH (21:00)
[2018-10-08] MEDS ORDERED: INSULIN DETEMIR (LEVEMIR) 100 UNIT/ML SYR SQ SCH (21:00)
[2018-10-08] MEDS ORDERED: PARoxetine 20 MG TAB PO SCH (21:00)
[2018-10-09] MEDS ORDERED: FENOFIBRATE 160 MG TAB PO SCH (09:00)
== END 2018-10-08 14:06 | disposition home or self-care (01) ==
LOC: EC 20:05 → 1SOBS 22:58
PROVIDERS: ADMIT Hospitalist; ATTEND Hospitalist
DX: R07.89 Other chest pain (principal); J44.9 Chronic obstructive pulmonary disease, unspecified; R11.0 Nausea; R10.13 Epigastric pain; K22.70 Barrett's esophagus without dysplasia; K21.9 Gastro-esophageal reflux disease without esophagitis; I11.0 Hypertensive heart disease with heart failure; I50.9 Heart failure, unspecified; E78.5 Hyperlipidemia, unspecified; G43.909 Migraine, unspecified, not intractable, without status migrainosus; F41.0 Panic disorder [episodic paroxysmal anxiety]; F41.9 Anxiety disorder, unspecified; F32.9 Major depressive disorder, single episode, unspecified; G89.4 Chronic pain syndrome; M54.9 Dorsalgia, unspecified; M54.2 Cervicalgia; M25.512 Pain in left shoulder; M79.642 Pain in left hand; R61 Generalized hyperhidrosis; E11.9 Type 2 diabetes mellitus without complications; E78.00 Pure hypercholesterolemia, unspecified; E78.1 Pure hyperglyceridemia; M79.7 Fibromyalgia; E03.9 Hypothyroidism, unspecified; Z79.51 Long term (current) use of inhaled steroids; Z79.4 Long term (current) use of insulin; Z79.891 Long term (current) use of opiate analgesic; Z79.82 Long term (current) use of aspirin; Z79.899 Other long term (current) drug therapy; Z88.2 Allergy status to sulfonamides; Z88.5 Allergy status to narcotic agent; Z90.711 Acquired absence of uterus with remaining cervical stump; Z96.60 Presence of unspecified orthopedic joint implant; Z82.49 Family history of ischemic heart disease and other diseases of the circulatory system; Z80.7 Family history of other malignant neoplasms of lymphoid, hematopoietic and related tissues; Z82.3 Family history of stroke; Z80.42 Family history of malignant neoplasm of prostate; Z80.8 Family history of malignant neoplasm of other organs or systems
CPT/HCPCS: 96375 ×2; 96376; 96365; 99285; 36415; 93005; 83880; 80061; 80053; 84443; 83690; 83735; 84484 ×2; 85025; 85610; 85730; 73030; 71046; G0378 ×2; J2060 ×2; J1100; J2405; J3475

== ENCOUNTER 2018-11-24 02:20 | Emergency (ER) | payer MEDICARE ==
[2018-11-24] MEDS ORDERED: SODIUM CHLORIDE 0.9% 1,000 ML IV STA (03:23)
[2018-11-24] MEDS ORDERED: diphenhydrAMINE 50 MG/ML 1 ML VIAL IVP STA (03:23)
[2018-11-24] MEDS ORDERED: METOCLOPRAMIDE 5 MG/ML 2 ML VIAL IVP STA (03:23)
--- NOTE | 2018-11-24 03:35 | ED ---
General Adult HPI - General Chief complaint: Headache Stated complaint: Poss flu, migraine,sick Time Seen by Provider: 11/24/18 03:23 Source: patient Mode of arrival: ambulatory Limitations: no limitations - History of Present Illness Initial comments: Danielle is a 68-year-old female who presents the emergency department today for evaluation of nausea, vomiting and headache. Patient reports she has chronic migraine she is followed with her primary care as well as pain management doctor due to her migraines. She is on a fentanyl patch for chronic pain including migraines. Patient reports a 4 days ago she began having a worsening headache consistent with previous migraines. She states that it's progressively gotten worse to the point where she has nausea and vomiting is unable tolerate any oral intake. Patient reports that she has crampy abdominal pain from vomiting so often she also feels that being dehydrated is worsening her headache. She denies any chest pain palpitations or shortness of breath. - Related Data Home Medications Medication Instructions Recorded Confirmed Lisinopril [Prinivil] 40 mg PO DAILY 02/12/15 11/24/18 SUMAtriptan SUCCINATE [Imitrex] 100 mg PO BID 02/12/15 11/24/18 Cyanocobalamin [Vitamin B-12 1,000 mcg SQ Q30D 02/04/16 11/24/18 Injection] Dexlansoprazole [Dexilant] 60 mg PO DAILY 02/04/16 11/24/18 Fluticasone Nasal [place] [Flonase 2 spray EA NOSTRIL HS 02/04/16 11/24/18 Nasal [place]] Fluticasone/Salmeterol [Advair 1 puff INHALATION RT-BID 02/04/16 11/24/18 100-50 Diskus] Atorvastatin [Lipitor] 80 mg PO DAILY 08/16/18 11/24/18 HYDROcodone/APAP 10-325MG [[place] 1 tab PO DAILY PRN 08/16/18 11/24/18 10-325] Insulin Glargine,Hum.rec.anlog 25 unit SQ HS 08/16/18 11/24/18 [Lantus Solostar] Pregabalin [Lyrica] 100 mg PO BID 08/16/18 11/24/18 Ranitidine HCl 300 mg PO DAILY 08/16/18 11/24/18 busPIRone HCL 15 mg PO BID 08/16/18 11/24/18 fentaNYL 50MCG/HR PATCH [Duragesic 1 patch TRANSDERM Q72H 08/16/18 11/24/18 50MCG/HR] Ergocalciferol (Vitamin D2) 50,000 unit PO WE 10/07/18 11/24/18 [Vitamin D2] Fenofibrate [Lofibra] 160 mg PO DAILY 10/07/18 11/24/18 PARoxetine [Paxil] 40 mg PO HS 10/07/18 11/24/18 Previous Rx's Medication Instructions Recorded Albuterol Inhaler [Ventolin Hfa 1 - 2 puff INHALATION RT-Q6H PRN 08/19/18 Inhaler] #1 inhaler Glimepiride [Amaryl] 1 mg PO AC-BRKFST #10 tab 08/19/18 Metoprolol Tartrate [Lopressor] 25 mg PO BID #60 tab 08/19/18 Aspirin EC [Ecotrin Low Dose] 81 mg PO DAILY #0 10/08/18 Orphenadrine Citrate [Orphenadrine 100 mg PO BID 3 Days #6 tablet.er 10/08/18 Citrate ER] Cephalexin [Keflex] 500 mg PO Q6HR #28 cap 11/24/18 Allergies Allergy/AdvReac Type Severity Reaction Status Date / Time codeine AdvReac Nausea Verified 10/07/18 22:07 Sulfa (Sulfonamide AdvReac Nausea Verified 10/07/18 22:07 Antibiotics) Review of Systems ROS Statement: Those systems with pertinent positive or pertinent negative responses have been documented in the HPI. ROS Other: All systems not noted in ROS Statement are negative. Past Medical History Past Medical History: Heart Failure, GERD/Reflux, Hyperlipidemia, Hypertension, Thyroid Disorder Additional Past Medical History / Comment(s): migraine, barretts esophagus History of Any Multi-Drug Resistant Organisms: None Reported Past Surgical History: Hernia Repair, Joint Replacement, Tonsillectomy Additional Past Surgical History / Comment(s): Partial hysterectomy Past Anesthesia/Blood Transfusion Reactions: No Reported Reaction Past Psychological History: Anxiety, Depression, Panic Disorder Smoking Status: Never smoker Past Alcohol Use History: None Reported Past Drug Use History: None Reported - Past Family History Mother Family Medical History: CVA/TIA, Myocardial Infarction ([place]) Father Family Medical History: Cancer, Prostate Disorder Additional Family Medical History / Comment(s): prostate ca and lymphoma, bone ca General Exam - General Exam Comments Initial Comments: Physical Exam GENERAL: Dehydrated female HENT: Normocephalic, Atraumatic. Dry mucous membranes EYES: PERRL, EOMI PULMONARY: Unlabored respirations. No audible rales rhonchi or wheezing was noted. CARDIOVASCULAR: There is a regular rate and rhythm without any murmurs gallops or rubs. ABDOMEN: Soft and nontender with normal bowel sounds. SKIN: Skin is clear with no lesions or rashes and otherwise unremarkable. : Deferred NEUROLOGIC: Patient is alert and oriented x3. Moving all extremities spontaneously MUSCULOSKELETAL: Normal extremities with adequate strength and full range of motion. No lower extremity swelling or edema. No calf tenderness. PSYCHIATRIC: Normal psychiatric evaluation. Limitations: no limitations Course Vital Signs 11/24/18 11/24/18 02:36 06:30 Temperature 98.2 F 98.3 F Pulse Rate 94 86 Respiratory 20 19 Rate Blood Pressure 163/76 144/85 O2 Sat by Pulse 96 100 Oximetry - Reevaluation(s) Reevaluation #1: She was reevaluated after medications. Patient sleeping comfortably in bed. reports that she said she was feeling much better prior to falling a sleep. He states he is comfortable taking her home at this time. 11/24/18 07:28 Medical Decision Making - Medical Decision Making The patient was seen and evaluated, history is obtained from the patient and at bedside 68-year-old female history of chronic migraines for which she follows with pain management & patient presenting for evaluation of 4 days of migraine with nausea, vomiting and decreased by mouth intake. On exam patient appears very dehydrated. Labs, medications were ordered Patient received IV fluids, she reported persistent headache after Reglan and Benadryl. She is drinking fluids holding them down reports feeling better but has persistent headache. Imitrex and Toradol were ordered. There was some hemolysis of the labs but they were not far from the patient's baseline. Urinalysis was consistent with a urinary tract infection and sinus and upon reevaluation the patient was sleeping comfortably stated that she stated her headache is resolved and he is comfortable taking her home at this time. - Lab Data Result diagrams: 11/24/18 04:10 11/24/18 03:56 Lab Results 11/24/18 11/24/18 11/24/18 Range/Units 03:56 04:10 04:10 WBC 9.1 (3.8-10.6) k/uL RBC 5.00 (3.80-5.40) m/uL Hgb 12.7 (11.4-16.0) gm/dL Hct 41.2 (34.0-46.0) % MCV 82.3 (80.0-100.0) fL MCH 25.4 (25.0-35.0) pg MCHC 30.9 L (31.0-37.0) g/dL RDW 15.5 (11.5-15.5) % Plt Count 180 (150-450) k/uL Neutrophils % (Manual) 77 % Lymphocytes % (Manual) 20 % Monocytes % (Manual) 2 % Eosinophils % (Manual) 1 % Neutrophils # (Manual) 7.01 (1.3-7.7) k/uL Lymphocytes # (Manual) 1.82 (1.0-4.8) k/uL Monocytes # (Manual) 0.18 (0-1.0) k/uL Eosinophils # (Manual) 0.09 (0-0.7) k/uL Nucleated RBCs 0 (0-0) /100 WBC Manual Slide Review Performed Hypochromasia Slight Poikilocytosis (manual Present Anisocytosis (manual) Present Sodium 139 (137-145) mmol/L Potassium 5.3 H (3.5-5.1) mmol/L Chloride 106 (98-107) mmol/L Carbon Dioxide 16 L (22-30) mmol/L Anion Gap 17 mmol/L BUN 18 H (7-17) mg/dL Creatinine 0.93 (0.52-1.04) mg/dL Est GFR (CKD-EPI)AfAm 73 (>60 ml/min/1.73 sqM) Est GFR (CKD-EPI)NonAf 63 (>60 ml/min/1.73 sqM) Glucose 251 H (74-99) mg/dL Plasma Lactic Acid [place] 1.6 (0.7-2.0) mmol/L Calcium 10.5 H (8.4-10.2) mg/dL Total Bilirubin 1.3 (0.2-1.3) mg/dL AST 47 H (14-36) U/L ALT 11 (9-52) U/L Alkaline Phosphatase <20 L (38-126) U/L Troponin I (0.000-0.034) ng/mL Total Protein 7.5 (6.3-8.2) g/dL Albumin 4.7 (3.5-5.0) g/dL Lipase 56 (23-300) U/L Urine Color Urine Appearance (Clear) Urine pH (5.0-8.0) Ur Specific [place] (1.001-1.035) Urine Protein (Negative) Urine Glucose (UA) (Negative) Urine Ketones (Negative) Urine Blood (Negative) Urine Nitrite (Negative) Urine Bilirubin (Negative) Urine Urobilinogen (<2.0) mg/dL Ur Leukocyte Esterase (Negative) Urine RBC (0-5) /hpf Urine WBC (0-5) /hpf Ur Squamous Epith Cells (0-4) /hpf Urine Mucus (None) /hpf 11/24/18 11/24/18 Range/Units 04:10 06:30 WBC (3.8-10.6) k/uL RBC (3.80-5.40) m/uL Hgb (11.4-16.0) gm/dL Hct (34.0-46.0) % MCV (80.0-100.0) fL MCH (25.0-35.0) pg MCHC (31.0-37.0) g/dL RDW (11.5-15.5) % Plt Count (150-450) k/uL Neutrophils % (Manual) % Lymphocytes % (Manual) % Monocytes % (Manual) % Eosinophils % (Manual) % Neutrophils # (Manual) (1.3-7.7) k/uL Lymphocytes # (Manual) (1.0-4.8) k/uL Monocytes # (Manual) (0-1.0) k/uL Eosinophils # (Manual) (0-0.7) k/uL Nucleated RBCs (0-0) /100 WBC Manual Slide Review Hypochromasia Poikilocytosis (manual Anisocytosis (manual) Sodium (137-145) mmol/L Potassium (3.5-5.1) mmol/L Chloride (98-107) mmol/L Carbon Dioxide (22-30) mmol/L Anion Gap mmol/L BUN (7-17) mg/dL Creatinine (0.52-1.04) mg/dL Est GFR (CKD-EPI)AfAm (>60 ml/min/1.73 sqM) Est GFR (CKD-EPI)NonAf (>60 ml/min/1.73 sqM) Glucose (74-99) mg/dL Plasma Lactic Acid [place] (0.7-2.0) mmol/L Calcium (8.4-10.2) mg/dL Total Bilirubin (0.2-1.3) mg/dL AST (14-36) U/L ALT (9-52) U/L Alkaline Phosphatase (38-126) U/L Troponin I 0.027 (0.000-0.034) ng/mL Total Protein (6.3-8.2) g/dL Albumin (3.5-5.0) g/dL Lipase (23-300) U/L Urine Color Yellow Urine Appearance Clear (Clear) Urine pH 6.0 (5.0-8.0) Ur Specific [place] 1.026 (1.001-1.035) Urine Protein 3+ H (Negative) Urine Glucose (UA) 1+ H (Negative) Urine Ketones 2+ H (Negative) Urine Blood Small H (Negative) Urine Nitrite Negative (Negative) Urine Bilirubin Negative (Negative) Urine Urobilinogen <2.0 (<2.0) mg/dL Ur Leukocyte Esterase Moderate H (Negative) Urine RBC 3 (0-5) /hpf Urine WBC 23 H (0-5) /hpf Ur Squamous Epith Cells 1 (0-4) /hpf Urine Mucus Rare H (None) /hpf Disposition Clinical Impression: Headache, UTI (urinary tract infection) Disposition: HOME SELF-CARE Condition: Stable Instructions (If sedation given, give patient instructions): Acute Headache (ED) Prescriptions: Cephalexin [Keflex] 500 mg PO Q6HR #28 cap Is patient prescribed a controlled substance at d/c from ED?: No Referrals: Je Farias DO [Primary Care Provider] - 1-2 days
[2018-11-24 04:20] LABS: HCT 41.2 % (34.0-46.0); HGB 12.7 gm/dL (11.4-16.0); Hypochromasia Slight; MCH 25.4 pg (25.0-35.0); MCHC 30.9 g/dL (31.0-37.0); MCV 82.3 fL (80.0-100.0); Mean Platelet Volume 7.7; Platelet Count 180 k/uL (150-450); RDW 15.5 % (11.5-15.5); WBC 9.1 k/uL (3.8-10.6)
[2018-11-24 04:30] LABS: Albumin 4.7 g/dL (3.5-5.0); Anion Gap 17 mmol/L; Calcium 10.5 mg/dL (8.4-10.2); Carbon Dioxide 16 mmol/L (22-30); Chloride 106 mmol/L (98-107); Glucose 251 mg/dL (74-99); Lipase 56 U/L (23-300); Sodium 139 mmol/L (137-145); Total Bilirubin 1.3 mg/dL (0.2-1.3); Total Protein 7.5 g/dL (6.3-8.2)
[2018-11-24 04:34] LABS: AST 47 U/L (14-36); Blood Urea Nitrogen 18 mg/dL (7-17); Potassium 5.3 mmol/L (3.5-5.1)
[2018-11-24 04:35] LABS: ALT 11 U/L (9-52); Alkaline Phosphatase <20 U/L (38-126)
[2018-11-24 04:39] LABS: Eosinophils # (M) 0.09 k/uL (0-0.7); Lymphocytes # (M) 1.82 k/uL (1.0-4.8); Monocytes # (M) 0.18 k/uL (0-1.0); Neutrophils # (M) 7.01 k/uL (1.3-7.7); Neutrophils % (M) 77 %; Nucleated Red Blood Cells 0 /100 WBC (0-0); Total Cells Counted 100
[2018-11-24 04:40] LABS: Anisocytosis (M) Present; Poikilocytosis (M) Present
[2018-11-24 06:31] VITALS: RESP 19; TEMP 98.3
[2018-11-24] MEDS ORDERED: KETOROLAC 30 MG/ML 1 ML VIAL IVP ONE (06:37)
[2018-11-24 06:38] LABS: Appearance,Urine Clear (Clear); Bilirubin,Urine Negative (Negative); Blood,Urine Small (Negative); Color,Urine Yellow; Glucose,Urine (UA) 1+ (Negative); Leukocyte Esterase,Urine Moderate (Negative); Mucus,Urine Rare /hpf; Nitrite,Urine Negative (Negative); Protein,Urine 3+ (Negative); RBC,Urine 3 /hpf (0-5); Specific Gravity,Urine 1.026 (1.001-1.035); Squamous Epithelial Cell,Urine 1 /hpf (0-4); Urobilinogen,Urine <2.0 mg/dL (<2.0); WBC,Urine 23 /hpf (0-5)
[2018-11-24 06:45] LABS: Ketones,Urine 2+ (Negative)
[2018-11-24] MEDS ORDERED: SUMAtriptan SUCCINATE 6 MG/0.5 ML VIAL SQ STA (06:48)
[2018-11-24] MEDS ORDERED: cefTRIAXone IN SWFI 1,000 MG/10 ML SYRINGE IVP STA (07:14)
[2018-11-24 08:55] VITALS: BP 140/81; PULSE 79
== END 2018-11-24 08:52 | disposition home or self-care (01) ==
LOC: EC 02:20
DX: N39.0 Urinary tract infection, site not specified (principal); R51 Headache; R11.2 Nausea with vomiting, unspecified; E78.5 Hyperlipidemia, unspecified; I11.0 Hypertensive heart disease with heart failure; I50.9 Heart failure, unspecified; K21.9 Gastro-esophageal reflux disease without esophagitis; G89.29 Other chronic pain; F32.9 Major depressive disorder, single episode, unspecified; F41.0 Panic disorder [episodic paroxysmal anxiety]; Z88.2 Allergy status to sulfonamides; Z88.5 Allergy status to narcotic agent; Z79.4 Long term (current) use of insulin; Z79.51 Long term (current) use of inhaled steroids; Z79.891 Long term (current) use of opiate analgesic; Z79.899 Other long term (current) drug therapy; Z86.69 Personal history of other diseases of the nervous system and sense organs
CPT/HCPCS: 36415; 80053; 81001; 83605; 83690; 84484; 85025; 96361; 96372; 96374; 96375; 99283

== ENCOUNTER 2018-11-25 16:42 | Inpatient (IN) | payer MEDICARE ==
[2018-11-25] MEDS ORDERED: ONDANSETRON 4 MG/2 ML VIAL IVP STA (17:15)
[2018-11-25] MEDS ORDERED: SODIUM CHLORIDE 0.9% 1,000 ML IV STA ×2 (17:15)
[2018-11-25] MEDS ORDERED: LORazepam 2 MG/ML INJ IV STA (17:16)
--- NOTE | 2018-11-25 17:36 | ED ---
Recheck HPI - General Chief Complaint: Headache Stated Complaint: High BP Time Seen by Provider: 11/25/18 16:53 Source: patient, family, RN notes reviewed, old records reviewed Mode of arrival: wheelchair Limitations: no limitations - History of Present Illness Initial Comments: This is a 5-year-old female the ER for evaluation. Patient coming for severely elevated blood pressure, anxiety and recent diagnosis of UTI, severe nausea vomiting unable take antibiotics at home. Patient has history of anxiety. Patient was seen in our ER yesterday and present progressed and significantly worsened since yesterday. She feels that she does have a fever she has had abdominal pain and does complain of headache and severe anxiety. - Related Data Home Medications Medication Instructions Recorded Confirmed Lisinopril [Prinivil] 40 mg PO DAILY 02/12/15 11/25/18 SUMAtriptan SUCCINATE [Imitrex] 100 mg PO BID 02/12/15 11/25/18 Dexlansoprazole [Dexilant] 60 mg PO DAILY 02/04/16 11/25/18 Fluticasone Nasal [place] [Flonase 2 spray EA NOSTRIL HS 02/04/16 11/25/18 Nasal [place]] Fluticasone/Salmeterol [Advair 1 puff INHALATION RT-BID 02/04/16 11/25/18 100-50 Diskus] Atorvastatin [Lipitor] 80 mg PO DAILY 08/16/18 11/25/18 HYDROcodone/APAP 10-325MG [[place] 1 tab PO DAILY PRN 08/16/18 11/25/18 10-325] Pregabalin [Lyrica] 100 mg PO BID 08/16/18 11/25/18 busPIRone HCL 15 mg PO BID 08/16/18 11/25/18 fentaNYL 50MCG/HR PATCH [Duragesic 1 patch TRANSDERM Q72H 08/16/18 11/25/18 50MCG/HR] Ergocalciferol (Vitamin D2) 50,000 unit PO WE 10/07/18 11/25/18 [Vitamin D2] Fenofibrate [Lofibra] 160 mg PO DAILY 10/07/18 11/25/18 PARoxetine [Paxil] 40 mg PO HS 10/07/18 11/25/18 Insulin Glargine [Lantus] 30 unit SQ HS 11/25/18 11/25/18 Magnesium Oxide [Mag-Ox] 200 mg PO BID 11/25/18 11/25/18 Previous Rx's Medication Instructions Recorded Albuterol Inhaler [Ventolin Hfa 1 - 2 puff INHALATION RT-Q6H PRN 08/19/18 Inhaler] #1 inhaler Glimepiride [Amaryl] 1 mg PO AC-BRKFST #10 tab 08/19/18 Metoprolol Tartrate [Lopressor] 25 mg PO BID #60 tab 08/19/18 Aspirin EC [Ecotrin Low Dose] 81 mg PO DAILY #0 10/08/18 Orphenadrine Citrate [Orphenadrine 100 mg PO BID 3 Days #6 tablet.er 10/08/18 Citrate ER] Cephalexin [Keflex] 500 mg PO Q6HR #28 cap 11/24/18 Allergies Allergy/AdvReac Type Severity Reaction Status Date / Time codeine AdvReac Nausea Verified 11/25/18 18:37 Sulfa (Sulfonamide AdvReac Nausea Verified 11/25/18 18:37 Antibiotics) Review of Systems ROS Statement: Those systems with pertinent positive or pertinent negative responses have been documented in the HPI. ROS Other: All systems not noted in ROS Statement are negative. Past Medical History Past Medical History: Heart Failure, GERD/Reflux, Hyperlipidemia, Hypertension, Thyroid Disorder Additional Past Medical History / Comment(s): migraine, barretts esophagus History of Any Multi-Drug Resistant Organisms: None Reported Past Surgical History: Hernia Repair, Joint Replacement, Tonsillectomy Additional Past Surgical History / Comment(s): Partial hysterectomy Past Anesthesia/Blood Transfusion Reactions: No Reported Reaction Past Psychological History: Anxiety, Depression, Panic Disorder Smoking Status: Never smoker Past Alcohol Use History: None Reported Past Drug Use History: None Reported - Past Family History Mother Family Medical History: CVA/TIA, Myocardial Infarction ([place]) Father Family Medical History: Cancer, Prostate Disorder Additional Family Medical History / Comment(s): prostate ca and lymphoma, bone ca General Exam Limitations: no limitations General appearance: alert, in no apparent distress, anxious Head exam: Present: atraumatic, normocephalic, normal inspection Eye exam: Present: normal appearance, PERRL, EOMI. Absent: scleral icterus, conjunctival injection, periorbital swelling ENT exam: Present: normal exam, mucous membranes moist Neck exam: Present: normal inspection. Absent: tenderness, meningismus, lymphadenopathy Respiratory exam: Present: normal lung sounds bilaterally. Absent: respiratory distress, wheezes, rales, rhonchi, stridor Cardiovascular Exam: Present: regular rate, normal rhythm, normal heart sounds. Absent: systolic murmur, diastolic murmur, rubs, gallop, clicks GI/Abdominal exam: Present: soft, normal bowel sounds. Absent: distended, tenderness, guarding, rebound, rigid Extremities exam: Present: normal inspection, full ROM, normal capillary refill. Absent: tenderness, pedal edema, joint swelling, calf tenderness Back exam: Present: normal inspection Neurological exam: Present: alert, oriented X3, CN II-XII intact Psychiatric exam: Present: normal affect, normal mood Skin exam: Present: warm, dry, intact, normal color. Absent: rash Course Vital Signs 11/25/18 16:47 Temperature 99.0 F Pulse Rate 64 Respiratory 22 Rate Blood Pressure 174/64 O2 Sat by Pulse 100 Oximetry - Reevaluation(s) Reevaluation #1: 11/25/18 18:59 Medical record and prior ER visits are reviewed Reevaluation #2: 11/25/18 18:59 Symptoms currently improving Medical Decision Making - Medical Decision Making 68 female the ER for evaluation min with IV antibiotics pain and blood pressure control - Lab Data Result diagrams: 11/25/18 17:27 11/25/18 17:27 Lab Results 11/25/18 11/25/18 11/25/18 Range/Units 17:27 17:27 17:50 WBC 7.5 (3.8-10.6) k/uL RBC 4.88 (3.80-5.40) m/uL Hgb 12.3 (11.4-16.0) gm/dL Hct 38.2 (34.0-46.0) % MCV 78.4 L (80.0-100.0) fL MCH 25.3 (25.0-35.0) pg MCHC 32.3 (31.0-37.0) g/dL RDW 15.5 (11.5-15.5) % Plt Count 203 (150-450) k/uL Neutrophils % 69 % Lymphocytes % 25 % Monocytes % 3 % Eosinophils % 2 % Basophils % 0 % Neutrophils # 5.1 (1.3-7.7) k/uL Lymphocytes # 1.9 (1.0-4.8) k/uL Monocytes # 0.2 (0-1.0) k/uL Eosinophils # 0.1 (0-0.7) k/uL Basophils # 0.0 (0-0.2) k/uL Sodium 138 (137-145) mmol/L Potassium 3.9 (3.5-5.1) mmol/L Chloride 104 (98-107) mmol/L Carbon Dioxide 21 L (22-30) mmol/L Anion Gap 13 mmol/L BUN 23 H (7-17) mg/dL Creatinine 1.04 (0.52-1.04) mg/dL Est GFR (CKD-EPI)AfAm 63 (>60 ml/min/1.73 sqM) Est GFR (CKD-EPI)NonAf 55 (>60 ml/min/1.73 sqM) Glucose 161 H (74-99) mg/dL Calcium 10.5 H (8.4-10.2) mg/dL Phosphorus 2.3 L (2.5-4.5) mg/dL Magnesium 1.3 L (1.6-2.3) mg/dL Total Bilirubin 0.7 (0.2-1.3) mg/dL AST 49 H (14-36) U/L ALT 21 (9-52) U/L Alkaline Phosphatase 23 L (38-126) U/L Total Protein 7.4 (6.3-8.2) g/dL Albumin 4.7 (3.5-5.0) g/dL Urine Color Yellow Urine Appearance Clear (Clear) Urine pH 5.5 (5.0-8.0) Ur Specific [place] 1.026 (1.001-1.035) Urine Protein 1+ H (Negative) Urine Glucose (UA) Negative (Negative) Urine Ketones Trace H (Negative) Urine Blood Negative (Negative) Urine Nitrite Negative (Negative) Urine Bilirubin Negative (Negative) Urine Urobilinogen <2.0 (<2.0) mg/dL Ur Leukocyte Esterase Trace H (Negative) Urine RBC <1 (0-5) /hpf Urine WBC 3 (0-5) /hpf Ur Squamous Epith Cells <1 (0-4) /hpf Urine Bacteria Rare H (None) /hpf Urine Mucus Rare H (None) /hpf Ur Yeast w Hyphae Rare (None) /hpf - EKG Data -: EKG Interpreted by Me (EKG shows sinus bradycardia rate 59, MN 152, QRS 74, QTc 473) - Radiology Data Radiology results: report reviewed (CT brain is negative for acute disease), image reviewed Disposition Clinical Impression: UTI (urinary tract infection), Hypomagnesemia, Anxiety, Failure of outpatient treatment Disposition: ADMITTED IP TO THIS HOSP Condition: Fair Is patient prescribed a controlled substance at d/c from ED?: No Referrals: Je Farias DO [Primary Care Provider] - 1-2 days
[2018-11-25 17:45] LABS: Basophils % (A) 0 %; Eosinophils # (A) 0.1 k/uL (0-0.7); Eosinophils % (A) 2 %; HCT 38.2 % (34.0-46.0); HGB 12.3 gm/dL (11.4-16.0); Lymphocytes # (A) 1.9 k/uL (1.0-4.8); Lymphocytes % (A) 25 %; MCH 25.3 pg (25.0-35.0); MCHC 32.3 g/dL (31.0-37.0); MCV 78.4 fL (80.0-100.0); Mean Platelet Volume 7.8; Monocytes # (A) 0.2 k/uL (0-1.0); Monocytes % (A) 3 %; Neutrophils # (A) 5.1 k/uL (1.3-7.7); Neutrophils % (A) 69 %; Platelet Count 203 k/uL (150-450); RBC 4.88 m/uL (3.80-5.40); RDW 15.5 % (11.5-15.5); WBC 7.5 k/uL (3.8-10.6)
[2018-11-25 17:52] LABS: Albumin 4.7 g/dL (3.5-5.0); Calcium 10.5 mg/dL (8.4-10.2); Magnesium 1.3 mg/dL (1.6-2.3); Phosphorus 2.3 mg/dL (2.5-4.5); Potassium 3.9 mmol/L (3.5-5.1); Total Bilirubin 0.7 mg/dL (0.2-1.3); Total Protein 7.4 g/dL (6.3-8.2)
[2018-11-25 18:11] LABS: Appearance,Urine Clear (Clear); Bacteria,Urine Rare /hpf; Bilirubin,Urine Negative (Negative); Blood,Urine Negative (Negative); Color,Urine Yellow; Glucose,Urine (UA) Negative (Negative); Hyphae Yeast, Urine Rare /hpf; Ketones,Urine Trace (Negative); Leukocyte Esterase,Urine Trace (Negative); Mucus,Urine Rare /hpf; Nitrite,Urine Negative (Negative); PH, Urine 5.5 (5.0-8.0); Protein,Urine 1+ (Negative); RBC,Urine <1 /hpf (0-5); Specific Gravity,Urine 1.026 (1.001-1.035); Squamous Epithelial Cell,Urine <1 /hpf (0-4); Urobilinogen,Urine <2.0 mg/dL (<2.0); WBC,Urine 3 /hpf (0-5)
--- NOTE | 2018-11-25 19:03 | CT ---
EXAMINATION: CT brain wo con DATE AND TIME: 11/25/2018 6:18 PM CLINICAL INDICATION: PHH; weakness TECHNIQUE: Standard departmental protocol.; 1072.4; COMPARISON: CT 02/03/2016 FINDINGS: The calvarium is intact. There is no intracranial hemorrhage. There is no intracranial mass or mass effect. No definite new intra-axial or extra-axial attenuation defect. The paranasal sinuses, middle ear cavities, and mastoid sinus air cells are clear. The orbits are unremarkable. IMPRESSION: NO ACUTE PROCESS.
[2018-11-25] MEDS: MAGNESIUM SULFATE-D5W PMX 1 GM in DEXTROSE/WATER 1 100ML.BAG IVPB SCH ×2 (19:52→21:44)
[2018-11-25] MEDS: LORazepam 2 MG/ML INJ IV PRN (20:51)
[2018-11-25 21:11] VITALS: BMI 36.6
[2018-11-25] MEDS ORDERED: HYDROcodone/APAP 10-325MG 1 EACH TAB PO PRN (21:11)
[2018-11-25] MEDS ORDERED: SUMAtriptan SUCCINATE 50 MG TAB PO PRN (21:15)
[2018-11-25 21:43] LABS: Glucose,Whole Blood 169 mg/dL (75-99)
[2018-11-25] MEDS: busPIRone HCl 5 MG TAB PO SCH (21:44)
[2018-11-25] MEDS: INSULIN DETEMIR (LEVEMIR) 100 UNIT/ML SYR SQ SCH (21:44)
[2018-11-25] MEDS: INSULIN ASPART (NovoLOG) 100 UNIT/ML VIAL SQ SCH (21:45)
[2018-11-25] MEDS: CYCLOBENZAPRINE 10 MG TAB PO SCH (21:45)
[2018-11-25] MEDS: PARoxetine 20 MG TAB PO SCH (21:45)
[2018-11-25] MEDS: MAGNESIUM OXIDE 400 MG TAB PO SCH (21:45)
[2018-11-25] MEDS: PREGABALIN 100 MG CAP PO SCH (21:45)
[2018-11-25] MEDS: METOPROLOL TARTRATE 25 MG TAB PO SCH (21:45)
[2018-11-26 07:17] LABS: Glucose,Whole Blood 119 mg/dL (75-99)
[2018-11-26] MEDS: ASPIRIN 81 MG PO SCH (07:44)
[2018-11-26] MEDS: GLIMEPIRIDE 1 MG TAB PO SCH (07:44)
[2018-11-26] MEDS: METOPROLOL TARTRATE 25 MG TAB PO SCH ×2 (07:45→21:14)
[2018-11-26] MEDS: FENOFIBRATE 160 MG TAB PO SCH (07:45)
[2018-11-26] MEDS: MAGNESIUM OXIDE 400 MG TAB PO SCH ×2 (07:46→21:14)
[2018-11-26] MEDS: ATORVASTATIN 80 MG TAB PO SCH (07:46)
[2018-11-26] MEDS: LISINOPRIL 20 MG TAB PO SCH (07:46)
[2018-11-26] MEDS: busPIRone HCl 5 MG TAB PO SCH ×2 (07:46→21:16)
[2018-11-26] MEDS: PREGABALIN 100 MG CAP PO SCH ×2 (07:46→21:15)
[2018-11-26] MEDS: PANTOPRAZOLE 40 MG TABLET PO SCH (07:46)
[2018-11-26] MEDS: CYCLOBENZAPRINE 10 MG TAB PO SCH ×2 (07:47→21:14)
[2018-11-26] MEDS: INSULIN ASPART (NovoLOG) 100 UNIT/ML VIAL SQ SCH ×5 (07:52→21:16)
[2018-11-26] MEDS: SYMBICORT 80-4.5 MCG INHALER INHALATION SCH ×2 (08:36→20:53)
[2018-11-26 11:54] LABS: Glucose,Whole Blood 150 mg/dL (75-99)
[2018-11-26 17:05] LABS: Glucose,Whole Blood 184 mg/dL (75-99)
[2018-11-26] MEDS: LORazepam 2 MG/ML INJ IV PRN (17:55)
[2018-11-26] MEDS ORDERED: KETOROLAC 30 MG/ML 1 ML VIAL IVP STA (17:56)
[2018-11-26] MEDS: ENOXAPARIN 40 MG/0.4 ML SYRINGE SQ SCH (18:13)
--- NOTE | 2018-11-26 20:03 | HP ---
HISTORY AND PHYSICAL DATE OF ADMISSION: 11/25/2018 DATE OF SERVICE: 11/26/2018 PRESENTING COMPLAINT: Increasing posterior scalp pain. HISTORY OF PRESENTING COMPLAINT: This is a pleasant 68-year-old patient of Dr. Farias. She has a rather extensive medical history. Her is present. Chronic stable medical conditions include diabetes mellitus, type 2, GERD, hyperlipidemia, hypertension, hypothyroid, Espinoza's esophagus. She states she has had headaches for all of her life. She also has a bone spur at the back of the scalp just above the neck where she was getting nerve injections that were being burnt off in [place]. Patient has a house in [place] and also has a house up here in [place]. The patient's son has been in an accident and she and her have come to help him out. The patient has been trying to get in to see Dr. Colunga to get some more nerve pain that can be burnt out, but was not able to make it there. The patient for the last 4 days has been having increasing headache, primarily located to the bone spur area in the posterior part of the scalp. The patient is already on a significant amount of pain medications. The patient also has underlying anxiety and depression and sometimes gets nausea. When she gets very anxious, her blood pressure goes up. No fever. No chills. No focal weakness. No other neurological symptoms. The patient was hoping that she could see a pain specialist while she is here in the hospital. REVIEW OF SYSTEMS: CONSTITUTIONAL: Tired. HEENT: As above. RESPIRATORY: None. CARDIOVASCULAR: None. GASTROINTESTINAL: Occasional nausea. GENITOURINARY: None. MUSCULOSKELETAL: Chronic pain. DERMATOLOGICAL: None. HEMATOLOGICAL: None. LYMPHATICS: None. PSYCHIATRY: Anxiety, depression. NEUROLOGICAL: No focal weakness. PAST MEDICAL HISTORY: 1. Questionable congestive heart failure. 2. Diabetes mellitus, type 2. 3. GERD. 4. Hyperlipidemia. 5. Hypertension. 6. Hypothyroid. 7. Espinoza's esophagus. 8. Migraine. 9. Painful bone spur in the back of the head. 10.Patient was recently at the other hospital in [facility] with a UTI. PAST SURGICAL HISTORY: 1. Hernia repair. 2. Joint replacement. 3. Tonsillectomy. 4. Partial hysterectomy. SOCIAL HISTORY: No smoking. No alcohol. . FAMILY HISTORY: Myocardial infarction, stroke, prostate cancer, lymphoma. HOME MEDICATIONS: 1. Fentanyl patch 50 mcg every 72 hours. 2. Buspirone 15 mg b.i.d. 3. Imitrex 100 mg b.i.d. p.r.n. 4. Lyrica 100 mg p.o. b.i.d. 5. Paxil 40 mg at bedtime. 6. Orphenadrine citrate 100 mg b.i.d. 7. Lopressor 25 b.i.d. 8. Magnesium oxide 200 mg b.i.d. 9. Prinivil 40 mg p.o. daily. 10.Lantus 30 units subcutaneously at bedtime. 11.[place] 10 one tablet daily p.r.n. 12.Amaryl 1 mg with breakfast. 13.Advair 100/50 one puff b.i.d. 14.Flonase. 15.Lofibra 160 mg p.o. daily. 16.Vitamin D2 50,000 units every Thursday. 17.Dexilant 60 mg p.o. daily. 18.Keflex 500 mg q.6. 19.Lipitor 80 mg p.o. daily. 20.Aspirin 81 mg p.o. daily. 21.Ventolin HFA 1 or 2 puffs q.6 p.r.n. ALLERGIES: CODEINE and SULFA. PHYSICAL EXAMINATION: VITAL SIGNS: Currently 97.4, pulse 74, respiration 17, blood pressure 118/73, pulse ox 97% on room air. GENERAL APPEARANCE: Well built; BMI 36.6. Anxious-appearing. EYES: Pupils equal. Conjunctivae normal. HEENT: External appearance of nose and ears normal. Oral cavity normal. NECK: JVD not raised. Mass not palpable. RESPIRATORY: Effort normal. Lungs are clear. CARDIOVASCULAR: First and second sounds normal. No edema. ABDOMEN: Soft, non-tender. Liver and spleen not palpable. LYMPHATIC: No lymph node palpable in neck or axillae. PSYCHIATRY: Alert and oriented x3. Mood and affect anxious-appearing. NEUROLOGICAL: Pupils equal. Cranial nerves grossly intact. Power and sensation grossly intact. INVESTIGATIONS: White count 7.5, hemoglobin 12.3, potassium 3.9, BUN 23, creatinine 1.04, calcium 10.5, magnesium 1.3. EKG tracing, personally reviewed by me, shows some flipped T-waves in the inferolateral leads. CT scan of the brain: Nil acute. ASSESSMENT: 1. Patient with increased cephalgia, more so localized to the posterior part of the scalp where she has a bone spur. She has been getting nerve injections in [place] and has been trying to get in with Dr. Colunga, not able to do the same. There is no fever. No chills. No localizing signs. The patient is already on a significant amount of pain medication. Did explain the same to her. Will use some local treatment, including a heating pad and maybe some NSAIDs. 2. Obesity; body mass index 36.6. 3. Diabetes mellitus, type 2, on oral hypoglycemic. 4. Gastroesophageal reflux disease. 5. Hyperlipidemia. 6. Essential hypertension, initially uncontrolled from anxiety. No true rise in blood pressure. 7. Anxiety and depression not otherwise specified with some element of pain being uncontrolled. 8. Espinoza's esophagus. PLAN: For the current time, we will use a short course of NSAIDs, including Toradol for 24 hours. Will also use a heating pad for the scalp. Other home medications to continue. I do not see any benefit from increasing the current pain medications. Patient is already on a large amount of pain medications and antispasmodic. I had a very lengthy talk with the patient and her , including using other parameters for pain control that could include acupuncture, Adam Chi, mindfulness, etc. The patient does want to stay overnight and then she will try to make an appointment with the pain specialist here at the hospital, preferably with Dr. Starkey. SD / ARTHUR: [id number] /
[2018-11-26 20:40] LABS: Glucose,Whole Blood 186 mg/dL (75-99)
[2018-11-26] MEDS: PARoxetine 20 MG TAB PO SCH (21:15)
[2018-11-26] MEDS: INSULIN DETEMIR (LEVEMIR) 100 UNIT/ML SYR SQ SCH (21:15)
[2018-11-26] MEDS: NAPROXEN 250 MG TAB PO SCH (23:36)
[2018-11-27] MEDS: METOPROLOL TARTRATE 25 MG TAB PO SCH ×2 (02:21→08:16)
[2018-11-27] MEDS: CYCLOBENZAPRINE 10 MG TAB PO SCH ×2 (02:21→08:18)
[2018-11-27] MEDS: MAGNESIUM OXIDE 400 MG TAB PO SCH ×2 (02:21→08:17)
[2018-11-27] MEDS: busPIRone HCl 5 MG TAB PO SCH ×2 (02:21→08:17)
[2018-11-27] MEDS: PARoxetine 20 MG TAB PO SCH (02:22)
[2018-11-27] MEDS: PREGABALIN 100 MG CAP PO SCH ×2 (02:22→08:18)
[2018-11-27] MEDS: SYMBICORT 80-4.5 MCG INHALER INHALATION SCH ×2 (06:14→20:14)
[2018-11-27 07:15] LABS: Glucose,Whole Blood 159 mg/dL (75-99)
[2018-11-27] MEDS: INSULIN ASPART (NovoLOG) 100 UNIT/ML VIAL SQ SCH ×6 (08:15→17:47)
[2018-11-27] MEDS: FENOFIBRATE 160 MG TAB PO SCH (08:16)
[2018-11-27] MEDS: ATORVASTATIN 80 MG TAB PO SCH (08:16)
[2018-11-27] MEDS: NAPROXEN 250 MG TAB PO SCH ×3 (08:17→17:50)
[2018-11-27] MEDS: LISINOPRIL 20 MG TAB PO SCH (08:17)
[2018-11-27] MEDS: ASPIRIN 81 MG PO SCH (08:18)
[2018-11-27] MEDS: ENOXAPARIN 40 MG/0.4 ML SYRINGE SQ SCH (08:18)
[2018-11-27] MEDS: PANTOPRAZOLE 40 MG TABLET PO SCH (08:18)
[2018-11-27] MEDS: GLIMEPIRIDE 1 MG TAB PO SCH (08:19)
[2018-11-27 12:05] LABS: Glucose,Whole Blood 191 mg/dL (75-99)
--- NOTE | 2018-11-27 14:23 | P.DS ---
Providers Date of admission: 11/25/18 18:58 Attending physician: Aamir Johns Primary care physician: Je [facility] Course: 68-year-old female admitted for cervical cephalalgia, symptoms of cephalalgia improved patient was partially treated for UTI before she came in was still complaining of few days symptoms patient was on Keflex which will be switched to Cipro for 3 more days and patient will be discharged today patient is otherwise clinically doing well. Patient was started on naproxen. Patient magnesium is low which will be replaced and patient will be given prescription for magnesium supplementation patient is appropriately and SSRIs for her anxiety patient was asked to follow-up with the primary care physician for treatment of anxiety disorder. Patient will follow-up With Dr. Colunga as an outpatient for cervical nerve block injections. PHYSICAL EXAMINATION: GENERAL: The patient is alert and oriented x3, not in any acute distress. Well developed, well nourished. HEENT: Pupils are round and equally reacting to light. EOMI. No scleral icterus. No conjunctival pallor. Normocephalic, atraumatic. No pharyngeal erythema. No thyromegaly. CARDIOVASCULAR: S1 and S2 present. No murmurs, rubs, or gallops. PULMONARY: Chest is clear to auscultation, no wheezing or crackles. ABDOMEN: Soft, nontender, nondistended, normoactive bowel sounds. No palpable organomegaly. MUSCULOSKELETAL: No joint swelling or deformity. EXTREMITIES: No cyanosis, clubbing, or pedal edema. NEUROLOGICAL: Gross neurological examination did not reveal any focal deficits. SKIN: No rashes. For other chronic medical problems has physician course please refer to dictation from Dr. Vo from yesterday Patient Condition at Discharge: Fair Plan - Discharge Summary New Discharge Prescriptions: New Naproxen [Naprosyn] 250 mg PO TID-W/MEALS PRN #30 tab PRN Reason: Pain Ranitidine HCl [Zantac] 150 mg PO BID #30 tab Ciprofloxacin HCl [Cipro] 500 mg PO Q12H 3 Days #6 tab Continue SUMAtriptan SUCCINATE [Imitrex] 100 mg PO BID Lisinopril [Prinivil] 40 mg PO DAILY Fluticasone Nasal [place] [Flonase Nasal [place]] 2 spray EA NOSTRIL HS Dexlansoprazole [Dexilant] 60 mg PO DAILY Fluticasone/Salmeterol [Advair 100-50 Diskus] 1 puff INHALATION RT-BID fentaNYL 50MCG/HR PATCH [Duragesic 50MCG/HR] 1 patch TRANSDERM Q72H HYDROcodone/APAP 10-325MG [[place] 10-325] 1 tab PO DAILY PRN PRN Reason: Pain busPIRone HCL 15 mg PO BID Atorvastatin [Lipitor] 80 mg PO DAILY Pregabalin [Lyrica] 100 mg PO BID Albuterol Inhaler [Ventolin Hfa Inhaler] 1 - 2 puff INHALATION RT-Q6H PRN #1 inhaler PRN Reason: Shortness Of Breath Or Wheezing Metoprolol Tartrate [Lopressor] 25 mg PO BID #60 tab Glimepiride [Amaryl] 1 mg PO AC-BRKFST #10 tab PARoxetine [Paxil] 40 mg PO HS Fenofibrate [Lofibra] 160 mg PO DAILY Ergocalciferol (Vitamin D2) [Vitamin D2] 50,000 unit PO WE Orphenadrine Citrate [Orphenadrine Citrate ER] 100 mg PO BID 3 Days #6 tablet.er Aspirin EC [Ecotrin Low Dose] 81 mg PO DAILY #0 Insulin Glargine [Lantus] 30 unit SQ HS Magnesium Oxide [Mag-Ox] 200 mg PO BID #60 tab Discontinued Cephalexin [Keflex] 500 mg PO Q6HR #28 cap Discharge Medication List Lisinopril [Prinivil] 40 mg PO DAILY 02/12/15 [History] SUMAtriptan SUCCINATE [Imitrex] 100 mg PO BID 02/12/15 [History] Dexlansoprazole [Dexilant] 60 mg PO DAILY 02/04/16 [History] Fluticasone Nasal [place] [Flonase Nasal [place]] 2 spray EA NOSTRIL HS 02/04/16 [History] Fluticasone/Salmeterol [Advair 100-50 Diskus] 1 puff INHALATION RT-BID 02/04/16 [History] Atorvastatin [Lipitor] 80 mg PO DAILY 08/16/18 [History] HYDROcodone/APAP 10-325MG [[place] 10-325] 1 tab PO DAILY PRN 08/16/18 [History] Pregabalin [Lyrica] 100 mg PO BID 08/16/18 [History] busPIRone HCL 15 mg PO BID 08/16/18 [History] fentaNYL 50MCG/HR PATCH [Duragesic 50MCG/HR] 1 patch TRANSDERM Q72H 08/16/18 [ History] Albuterol Inhaler [Ventolin Hfa Inhaler] 1 - 2 puff INHALATION RT-Q6H PRN #1 inhaler 08/19/18 [Rx] Glimepiride [Amaryl] 1 mg PO AC-BRKFST #10 tab 08/19/18 [Rx] Metoprolol Tartrate [Lopressor] 25 mg PO BID #60 tab 08/19/18 [Rx] Ergocalciferol (Vitamin D2) [Vitamin D2] 50,000 unit PO WE 10/07/18 [History] Fenofibrate [Lofibra] 160 mg PO DAILY 10/07/18 [History] PARoxetine [Paxil] 40 mg PO HS 10/07/18 [History] Aspirin EC [Ecotrin Low Dose] 81 mg PO DAILY #0 10/08/18 [Rx] Orphenadrine Citrate [Orphenadrine Citrate ER] 100 mg PO BID 3 Days #6 tablet.er 10/08/18 [Rx] Insulin Glargine [Lantus] 30 unit SQ HS 11/25/18 [History] Ciprofloxacin HCl [Cipro] 500 mg PO Q12H 3 Days #6 tab 11/27/18 [Rx] Magnesium Oxide [Mag-Ox] 200 mg PO BID #60 tab 11/27/18 [Rx] Naproxen [Naprosyn] 250 mg PO TID-W/MEALS PRN #30 tab 11/27/18 [Rx] Ranitidine HCl [Zantac] 150 mg PO BID #30 tab 11/27/18 [Rx] Follow up Appointment(s)/Referral(s): Ever Starkey MD [STAFF PHYSICIAN] - 11/30/18 eJ Farias DO [Primary Care Provider] - 3 Days Discharge Disposition: HOME SELF-CARE
[2018-11-27 14:52] VITALS: RESP 16
[2018-11-27] MEDS ORDERED: Magnesium Replacement Protocol 1 EACH MISC MISCELLANE PRN (15:44)
[2018-11-27] MEDS: MAGNESIUM SULFATE-D5W PMX 1 GM in DEXTROSE/WATER 1 100ML.BAG IVPB SCH ×3 (16:32→19:25)
[2018-11-27 17:16] LABS: Glucose,Whole Blood 249 mg/dL (75-99)
[2018-11-27 20:41] VITALS: BP 139/62; PULSE 53; TEMP 98.1
[2018-12-01] MEDS ORDERED: ERGOCALCIFEROL 50,000 UNIT CAP PO SCH (09:00)
== END 2018-11-27 21:02 | disposition home or self-care (01) | DRG 103 ==
LOC: EC 16:42 → 4MS4W 18:58
PROVIDERS: ADMIT Hospitalist; ATTEND Hospitalist
DX: R51 Headache (principal); N39.0 Urinary tract infection, site not specified; M77.8 Other enthesopathies, not elsewhere classified; F41.0 Panic disorder [episodic paroxysmal anxiety]; E83.42 Hypomagnesemia; K21.9 Gastro-esophageal reflux disease without esophagitis; I50.9 Heart failure, unspecified; I11.0 Hypertensive heart disease with heart failure; E78.5 Hyperlipidemia, unspecified; E07.9 Disorder of thyroid, unspecified; E03.9 Hypothyroidism, unspecified; E11.9 Type 2 diabetes mellitus without complications; E66.9 Obesity, unspecified; F32.9 Major depressive disorder, single episode, unspecified; G43.909 Migraine, unspecified, not intractable, without status migrainosus; Z96.60 Presence of unspecified orthopedic joint implant; K22.70 Barrett's esophagus without dysplasia; Z68.36 Body mass index [BMI] 36.0-36.9, adult; Z79.4 Long term (current) use of insulin; Z79.82 Long term (current) use of aspirin; Z79.899 Other long term (current) drug therapy; Z80.7 Family history of other malignant neoplasms of lymphoid, hematopoietic and related tissues; Z82.3 Family history of stroke; Z82.49 Family history of ischemic heart disease and other diseases of the circulatory system; Z90.711 Acquired absence of uterus with remaining cervical stump; Z88.5 Allergy status to narcotic agent; Z88.2 Allergy status to sulfonamides; Z90.89 Acquired absence of other organs
CPT/HCPCS: 36415; 70450; 80053; 81001; 83605; 83690; 83735; 84100; 84484; 85025; 87086; 93005; 94640; 96361; 96365; 96367; 96372; 96374; 96375; 99283; 99285